=== PATIENT | female | born 1965 | race Caucasian/White ===

== ENCOUNTER 2020-07-05 13:47 | Outpatient (REF) | payer BC, SELFPAY ==
[2020-07-05 16:44] LABS: Alanine Aminotransferase 38 U/L (0-31); Albumin Level 4.2 g/dL (3.5-5.0); Alkaline Phosphatase 95 U/L (39-117); Aspartate Amino Transferase 31 U/L (5-31); Bilirubin Direct 0.2 mg/dL (0.0-0.5); Bilirubin Total 0.5 mg/dL (0.0-1.0); Total Protein 6.8 g/dL (6.5-8.0)
== END 2020-07-05 13:48 | disposition home or self-care (01) ==
LOC: HO.HMGCLDS 13:47
PROVIDERS: PCP Internal Medicine; Visit Provider Podiatrist
DX: B35.1 Tinea unguium (principal)
CPT/HCPCS: 80076

== ENCOUNTER 2020-07-15 10:47 | Outpatient (REF) | payer BC, SELFPAY ==
[2020-07-15 11:06] LABS: COVID-19 Test Negative (Negative)
== END 2020-07-15 10:48 | disposition home or self-care (01) ==
LOC: HO.LAB 10:47
PROVIDERS: Visit Provider Internal Medicine
DX: Z20.828 Contact with and (suspected) exposure to other viral communicable diseases (principal)
CPT/HCPCS: 87635; C9803

== ENCOUNTER → 2020-08-15 13:00 | Outpatient (BNVA) | payer BC, SELFPAY | PROVIDERS: PCP Internal Medicine; Visit Provider Surgery | DX: Z76.89 Persons encountering health services in other specified circumstances (principal) ==

== ENCOUNTER → 2020-09-17 15:15 | Outpatient (BNVA) | payer BC, SELFPAY | PROVIDERS: Visit Provider Obstetrics & Gynecology | DX: Z76.89 Persons encountering health services in other specified circumstances (principal) ==

== ENCOUNTER 2020-09-23 09:53 | Day surgery (SDC) | payer BC, SELFPAY ==
[2020-09-16 14:30] VITALS: BMI 29.9
--- NOTE | 2020-09-20 08:34 | HO.ANESPROP2 ---
Documented by User: Sejal Torresney 09/20/20 08:35 HPI - Anesthesia Eval Consult details Narrative: 55yo F [facility] Past Medical History Medical History Arthritis Asthma Cold-induced asthma Hypertension On beta ayush at home PVCs (premature ventricular contractions) Scoliosis Seasonal allergies Tubular adenoma of colon Family History Family History Father CAD (coronary artery disease) Mother No problems noted. Maternal Grandmother Breast cancer Paternal Grandfather Colon cancer Surgical History Surgical History H/O colonoscopy H/O LEEP History of ankle surgery History of cholecystectomy History of toe surgery History of tonsillectomy S/P laparoscopic sleeve gastrectomy Social History Social History Are you a primary healthcare sales representative to a significant other at home: No Do you presently have visiting nurse or other home services: No Alcohol intake: current Alcohol intake frequency: holidays/special occasions only Smoking Status: Never smoker Tobacco Type: Cigarette Use of substances other than those prescribed or required for medical reasons: No Have you been hit, kicked, punched, or otherwise hurt by someone within the past year? If so, by whom?: No Advance Directives: No Advance Directives Information Provided: No Advance Directives on File: No Recently lost weight without trying: No Sexual orientation: Straight/Heterosexual Gender identity: female Meds Allergies Allergy/AdvReac Type Severity Reaction Status Date / Time iopromide [From Ultravist] Allergy Mild HIVES, Verified 09/17/20 15:[address] Scan dye Allergy Unknown face Uncoded 09/17/20 15:17 swelling IVP dye Allergy Unknown facial Uncoded 09/17/20 15:17 swelling, petechiea Home Medications Medication Instructions Recorded Confirmed Type albuterol sulfate 90 mcg/actuation 1 puff INHALATION Q4-6H PRN 08/07/20 09/16/20 History aerosol inhaler cholecalciferol (vitamin D3) 50 50 mcg PO DAILY 08/07/20 09/16/20 History mcg (2,000 unit) capsule metoprolol tartrate 25 mg tablet 25 mg PO BID 08/07/20 09/16/20 History nystatin 100,000 unit/gram topical 1 appl TOPICAL BID 08/07/20 09/16/20 History cream triamcinolone acetonide 0.1 % 1 appl TOPICAL BID 08/07/20 09/16/20 History topical cream ascorbic acid (vitamin C) 1,000 mg 1 g PO DAILY tab 08/15/20 09/16/20 History tablet ciclopirox 0.77 % topical cream 1 appl TOPICAL BID 08/15/20 08/15/20 History multivitamin 1 tab PO BID tab 08/15/20 09/16/20 History terbinafine HCl 250 mg tablet 250 mg PO DAILY 08/15/20 09/16/20 History thiamine HCl (vitamin B1) 100 mg 100 mg PO DAILY 09/17/20 History tablet Exam Exam Date and Time: September 20, 2020 0834 Height,Weight and Vital Signs: Height 5 ft 3.5 in Weight 78.018 kg Assessment and Plan Assessment Anesthesia Assessment: Chart Reviewed Documented by User: Carlos Manuel Childs MD 09/23/20 10:06 [facility] Past Medical History Medical History Arthritis Asthma Cold-induced asthma Hypertension On beta ayush at home PVCs (premature ventricular contractions) Scoliosis Seasonal allergies Tubular adenoma of colon Family History Family History Father CAD (coronary artery disease) Mother No problems noted. Maternal Grandmother Breast cancer Paternal Grandfather Colon cancer Surgical History Surgical History H/O colonoscopy H/O LEEP History of ankle surgery History of cholecystectomy History of toe surgery History of tonsillectomy S/P laparoscopic sleeve gastrectomy Social History Social History Are you a primary healthcare sales representative to a significant other at home: No Do you presently have visiting nurse or other home services: No Alcohol intake: current Alcohol intake frequency: holidays/special occasions only Smoking Status: Never smoker Tobacco Type: Cigarette Use of substances other than those prescribed or required for medical reasons: No Have you been hit, kicked, punched, or otherwise hurt by someone within the past year? If so, by whom?: No Advance Directives: No Advance Directives Information Provided: No Advance Directives on File: No Recently lost weight without trying: No Sexual orientation: Straight/Heterosexual Gender identity: female Meds Allergies Allergy/AdvReac Type Severity Reaction Status Date / Time iopromide [From Ultravist] Allergy Mild HIVES, Verified 09/17/20 15:[address] Scan dye Allergy Unknown face Uncoded 09/17/20 15:17 swelling IVP dye Allergy Unknown facial Uncoded 09/17/20 15:17 swelling, petechiea Home Medications Medication Instructions Recorded Confirmed Type albuterol sulfate 90 mcg/actuation 1 puff INHALATION Q4-6H PRN 08/07/20 09/16/20 History aerosol inhaler cholecalciferol (vitamin D3) 50 50 mcg PO DAILY 08/07/20 09/16/20 History mcg (2,000 unit) capsule metoprolol tartrate 25 mg tablet 25 mg PO BID 08/07/20 09/16/20 History nystatin 100,000 unit/gram topical 1 appl TOPICAL BID 08/07/20 09/16/20 History cream triamcinolone acetonide 0.1 % 1 appl TOPICAL BID 08/07/20 09/16/20 History topical cream ascorbic acid (vitamin C) 1,000 mg 1 g PO DAILY tab 08/15/20 09/16/20 History tablet ciclopirox 0.77 % topical cream 1 appl TOPICAL BID 08/15/20 08/15/20 History multivitamin 1 tab PO BID tab 08/15/20 09/16/20 History terbinafine HCl 250 mg tablet 250 mg PO DAILY 08/15/20 09/16/20 History thiamine HCl (vitamin B1) 100 mg 100 mg PO DAILY 09/17/20 History tablet Exam Airway Mallampati Class: II TM Dist: >3cm Heart: RRR Lungs: NL Other: AO Assessment and Plan Assessment Anesthesia Assessment: Anesthesia Plan Discussed Final Anesthetic Review NPO: Yes ASA Class: II Final Preanesthetic Review: No Changes in Pt Med Stat, Meds/Allgs Chart Reviewed, Consent Obtained/Reviewed and Anes Risks/Benef Reviewed Patient Risk: Intermediate Procedure Risk: Low Anesthetic Plan Anesthetic Plan: MAC: Disposition: Standard PACU
[2020-09-23 10:18] VITALS: BP 114/72; PULSE 57; RESP 18; TEMP 36.5; O2SAT 98
[2020-09-23] MEDS: Lactated Ringers 1,000 ML 100 ML IVCONT (10:33)
--- NOTE | 2020-09-23 10:59 | MHC.SHP ---
Pre-Procedural Eval Section B Chief Complaint: Tubular adenoma of colon Details of Present Illness: colon cancer screening, no GI complaints. Relevant Family History (Specify if Yes): No Relevant Social History: None Present Medications: see Short Stay Collaborative assessment Medical History: No relevant PMH History of Previous Operations: No relevant previous surgery Allergies: Allergies Allergy/AdvReac Type Severity Reaction Status Date / Time iopromide [From Ultravist] Allergy Mild HIVES, Verified 09/17/20 15:[address] Scan dye Allergy Unknown face Uncoded 09/17/20 15:17 swelling IVP dye Allergy Unknown facial Uncoded 09/17/20 15:17 swelling, petechiea Review of Systems Sugical H&P ROS: Negative: Constitution, Cardiovascular, Respiratory, Neurological, Psychiatric, Hem-Onc, Allergic/Immunologic, Gastrointestinal, Genitourinary, Musculoskeletal, Integumentary, Endocrine and Eyes/Ears/Nose/Throat Exam Surgical H&P Exam: Normal: HEENT, Normal: Heart, Normal: Lungs, Normal: Extremities, Normal: Abdomen, Normal: Skin and Normal: Neurological Plan Diagnosis/Plan: Unchanged I have reviewed the history and physical and performed a pertinent physical examination on my patient. No changes have occurred unless specified.
[2020-09-23 11:48] VITALS: BP 107/69; PULSE 66; RESP 16; TEMP 36.5; O2SAT 97
--- NOTE | 2020-09-23 11:48 | W.PM.OPN ---
Operative Note Operative Note Date of Service: 09/23/20 Narrative: Preoperative diagnosis: History of tubular adenomas of: Postoperative diagnosis: Colon polyp Procedure: Colonoscopy with polypectomy Anesthesia: Monitored anesthesia care Estimated blood loss: Less than 1 cc Specimen: Polyp proximal right colon Indications: This is a 55-year-old female with a prior history of tubular adenomas of the colon who has no GI complaints and presents for routine colonoscopy. Procedure in detail: With the patient in left lateral decubitus position after obtaining adequate sedation, time-out procedure was performed. Rectal examination revealed no abnormalities. The flexible pediatric colonoscope was introduced and was gradually advanced through the bowel to the level of the cecum. The prep was good with some thick liquid material remaining throughout the colon. This could be irrigated and suctioned away. The cecal pouch, ileocecal valve and appendiceal orifice were inspected and appeared normal. The ileocecal valve was not intubated. The scope was slowly withdrawn, visualizing all mucosal surfaces, was retroflexed within the rectum and was then straightened and withdrawn. She tolerated the procedure well. In the proximal right colon, there was 1 small polyp that was completely removed with the biopsy forceps. There was no significant bleeding. Based upon findings and prior history, next routine colonoscopy will be due in 5 years.
[2020-09-23 12:03] VITALS: BP 110/65; PULSE 59; RESP 18; O2SAT 97
--- NOTE | 2020-09-23 12:30 | HO.POSTANES ---
Post Anesthesia Evaluation Post Anesthesia Evaluation Vital Signs: Vital Signs Temp Pulse Resp BP Pulse Ox 09/23/20 12:03 97.7 F 59 18 110/65 97 09/23/20 11:48 97.7 F 66 16 107/69 97 09/23/20 10:18 97.7 F 57 18 114/72 98 Anesthesia: Monitored Mental Status: Awake Pain Control: Satisfactory Nausea/Vomiting: None Hydration: Adequate Anesthesia-Related Issues: No Anes. Related Issues
== END 2020-09-23 12:31 ==
LOC: HO.SSS 09:54
PROVIDERS: PCP Internal Medicine; Visit Provider Surgery
PROC: 0DJD8ZZ Inspection of Lower Intestinal Tract, Via Natural or Artificial Opening Endoscopic (ICD-10-PCS; CPT 45378; principal; 2020-09-23 11:00)
DX: Z12.11 Encounter for screening for malignant neoplasm of colon (principal); Z86.010 Personal history of colon polyps; D12.2 Benign neoplasm of ascending colon; I10 Essential (primary) hypertension; J45.909 Unspecified asthma, uncomplicated; Z98.84 Bariatric surgery status; Z91.041 Radiographic dye allergy status; I49.3 Ventricular premature depolarization; Z79.899 Other long term (current) drug therapy
CPT/HCPCS: 45380; 88305; J2250; J2405

== ENCOUNTER 2020-10-29 06:48 | Outpatient (REF) | payer BC, SELFPAY ==
[2020-10-29 07:53] LABS: Alanine Aminotransferase 68 U/L (0-31); Albumin Level 4.3 g/dL (3.5-5.0); Alkaline Phosphatase 103 U/L (39-117); Aspartate Amino Transferase 33 U/L (5-31); Bilirubin Direct 0.2 mg/dL (0.0-0.5); Bilirubin Total 0.4 mg/dL (0.0-1.0); Total Protein 7.2 g/dL (6.5-8.0)
== END 2020-10-29 06:49 | disposition home or self-care (01) ==
LOC: HO.LAB 06:48
PROVIDERS: PCP Internal Medicine; Visit Provider Podiatrist
DX: B35.1 Tinea unguium (principal)
CPT/HCPCS: 36415; 80076

== ENCOUNTER 2020-12-17 07:40 | Outpatient (REF) | payer BC, SELFPAY ==
--- NOTE | ~2020-12-17 | MM_ITS ---
EXAMINATION: MM DIAGNOSTIC DIGITAL BREAST TOMOSYNTHESIS, BILATERAL CLINICAL INFORMATION: Due for yearly. Also follow-up probable benign fibroglandular density anterior medial left breast. The lifetime risk of breast cancer based on the Tyrer-Cuzick Model is 9%. COMPARISON: Mammography: 05/29/2020, 10/23/2019, 10/17/2019 (BI-RADS 0), and multiple prior studies dating back to 08/09/2009. Targeted ultrasound left breast 10/23/2019. TECHNIQUE: Digital breast tomosynthesis is performed in both the craniocaudal and mediolateral oblique views along with computer-aided detection (CAD). Synthesized 2D images are generated from the tomosynthesis. FINDINGS: There are scattered areas of fibroglandular density (ACR BI-RADS breast composition Category b). Parenchymal pattern is similar to prior exams. There are bilateral shifting fibroglandular densities from year to year based on positioning and compression. There is no developing density or interval mass or architectural abnormality. No abnormal calcifications. The axilla and skin contours are unremarkable. Results are provided to the patient at time of visit by the technologist. Management plan is for diagnostic exam-next bilateral annual mammography to conclude long-term surveillance. MM/MM tomosynthesis diagnostic BI IMPRESSION: 1. No mammographic evidence of malignancy. 2. Anterior medial left breast similar to prior diagnostic exams. ASSESSMENT: BI-RADS 3: Probably Benign RECOMMENDATION: Diagnostic mammography at time of next annual exam, due in 12 months. This patient's information was entered into a reminder system with a target due date for their next mammogram.
== END 2020-12-17 07:41 | disposition home or self-care (01) ==
LOC: HO.MAMMO 07:40
PROVIDERS: PCP Internal Medicine; Visit Provider Internal Medicine
DX: R92.2 Inconclusive mammogram (principal)
CPT/HCPCS: 77062; 77066

== ENCOUNTER 2021-12-26 13:16 | Outpatient (REF) | payer BC, SELFPAY ==
--- NOTE | ~2021-12-26 | MM_ITS ---
EXAMINATION: MM DIAGNOSTIC DIGITAL BREAST TOMOSYNTHESIS, BILATERAL CLINICAL INFORMATION: Screening right breast study with 6 month follow-up left breast study The lifetime risk of breast cancer based on the Tyrer-Cuzick Model is 6.1%. COMPARISON: Mammography: December 17, 2020 and studies dating back to March 15, 2012 TECHNIQUE: Digital breast tomosynthesis is performed in both the craniocaudal and mediolateral oblique views along with computer-aided detection (CAD). Synthesized 2D images are generated from the tomosynthesis. FINDINGS: There are scattered areas of fibroglandular density (ACR BI-RADS breast composition Category b). There are no significant masses, abnormal calcifications, or other abnormalities. There is stable appearance of medial anterior densities with no new suspicious dominant mass or clustered microcalcifications. Results are provided to the patient at time of visit by the technologist. MM/MM tomosynthesis diagnostic BI IMPRESSION: There are no significant changes from prior study. ASSESSMENT: BI-RADS 2: Benign RECOMMENDATION: Routine annual mammography screening due in 12 months. This patient's information was entered into a reminder system with a target due date for their next mammogram.
== END 2021-12-26 13:17 | disposition home or self-care (01) ==
LOC: HO.MAMMO 13:16
PROVIDERS: PCP Internal Medicine; Visit Provider Internal Medicine
DX: R92.2 Inconclusive mammogram (principal)
CPT/HCPCS: 77062; 77066

== ENCOUNTER 2022-01-21 14:41 | Outpatient (REF) | payer BC, SELFPAY ==
[2022-01-28 01:12] LABS: HPV 16 RNA NOT DETECTED (NOT DETECTED); HPV mRNA E6/E7 rflx Detected (Not Detected)
== END 2022-01-21 14:42 | disposition home or self-care (01) ==
LOC: HO.LAB 14:41
PROVIDERS: Visit Provider Advanced Practice Midwife
DX: Z01.419 Encounter for gynecological examination (general) (routine) without abnormal findings (principal); Z11.51 Encounter for screening for human papillomavirus (HPV)
CPT/HCPCS: 87624; 87625; 88142

== ENCOUNTER → 2022-12-01 14:59 | Outpatient (BNVA) | payer BC, SELFPAY | PROVIDERS: PCP Internal Medicine; Visit Provider Hospitalist | DX: Z13.89 Encounter for screening for other disorder (principal) ==

== ENCOUNTER 2022-12-28 13:32 | Outpatient (REF) | payer BC, SELFPAY ==
--- NOTE | ~2022-12-28 | MM_ITS ---
EXAMINATION: MM SCREENING DIGITAL BREAST TOMOSYNTHESIS, BILATERAL CLINICAL INFORMATION: Screening. Asymptomatic. The lifetime risk of breast cancer based on the Tyrer-Cuzick Model is 6.1%. COMPARISON: Mammography: December 26, 2021 and studies dating back to June 20, 2015 TECHNIQUE: Digital breast tomosynthesis is performed in both the craniocaudal and mediolateral oblique views along with computer-aided detection (CAD). Synthesized 2D images are generated from the tomosynthesis. FINDINGS: There are scattered areas of fibroglandular density (ACR BI-RADS breast composition Category b). There are no significant masses, abnormal calcifications, or other abnormalities. MM/MM tomosynthesis screening BI IMPRESSION: No significant changes from prior exam. ASSESSMENT: BI-RADS 1: Negative RECOMMENDATION: Routine annual mammography screening. This patient's information was entered into a reminder system with a target due date for their next mammogram.
== END 2022-12-28 13:33 | disposition home or self-care (01) ==
LOC: HO.MAMMO 13:32
PROVIDERS: PCP Internal Medicine; Visit Provider Internal Medicine
DX: Z12.31 Encounter for screening mammogram for malignant neoplasm of breast (principal)
CPT/HCPCS: 77063; 77067

== ENCOUNTER 2023-04-12 08:59 | Outpatient (AMB) | payer BC, SELFPAY ==
[2023-04-12 09:06] VITALS: BP 132/68; PULSE 75; O2SAT 98; BMI 34.2
--- NOTE | 2023-04-12 09:06 | MHC.PC.OV ---
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 Accompanied by: Self / Same As Patient Allergies iopromide [From Ultravist] Allergy (Mild, Verified 04/12/23 09:07) HIVES, FACIAL SWELLING CT Scan dye Allergy (Unknown, Uncoded 04/12/23 09:07) face swelling IVP dye Allergy (Unknown, Uncoded 04/12/23 09:07) facial swelling, petechiea Medication List - Last Reconciled 04/12/23 by Uziel Cantu MD albuterol sulfate 90 mcg/actuation 1 puff inhalation Q4-6H PRN albuterol sulfate 2.5 mg (3 mL) inhalation Q6H PRN 30 days ascorbic acid (vitamin C) 1 g PO DAILY cholecalciferol (vitamin D3) 50 mcg PO DAILY ciclopirox 0.77% 1 appl topical BID dicyclomine 20 mg PO QID metoprolol tartrate 25 mg PO BID multivitamin (Multiple Vitamins tablet) 1 tab PO BID nebulizer and compressor (Home Nebulizer Plus Sidestream) As directed nebulizers As directed nystatin 1 appl topical BID omeprazole 20 mg PO BID triamcinolone acetonide 0.1% 1 appl topical BID Tobacco use date assessed: 03/03/23 Dental Screening Dental Screen Date: 04/12/23 Did you have a dental visit in the last 12 months?: Yes Did you have a dental problem in the last 6 months where you did not have access to dental care?: No Was dental information given to patient?: Patient has dentist HPI PE HPI Details asthma and HTN; doing well [facility] Medical History (Updated 03/03/23 @ 09:05 by Uziel Cantu MD) Arthritis Asthma Cold-induced asthma Cough Hypertension Obesity Obesity (BMI 30-39.9) On beta ayush at home PVCs (premature ventricular contractions) Scoliosis Seasonal allergies Tubular adenoma of colon Surgical History H/O colonoscopy H/O LEEP History of ankle surgery History of cholecystectomy History of toe surgery History of tonsillectomy S/P laparoscopic sleeve gastrectomy Family History Father CAD (coronary artery disease) Mother No problems noted. Maternal Grandmother Breast cancer Paternal Grandfather Colon cancer Social History Housing: House Are you a primary healthcare consultant to a significant other at home: No Do you presently have visiting nurse or other home services: No Alcohol intake: current Alcohol intake frequency: holidays/special occasions only Patient Tobacco Use Status: Never used Tobacco e-Cigarette/Vaping Use: Never Used Second Hand Smoke Exposure: No service: No Current occupational status: unemployed Sexual orientation: Straight/Heterosexual Gender identity: Female Cognitive needs: No Hearing needs: No Vision needs: No Questionnaire PHQ-9 Over the last 2 weeks, how often have you been bothered by any of the following problems? 1. Little interest or pleasure in doing things: not at all 2. Feeling down, depressed, or hopeless: not at all 3. Trouble falling or staying asleep, or sleeping too much: not at all 4. Feeling tired or having little energy: not at all 5. Poor appetite or overeating: not at all 6. Feeling bad about yourself - or that you are a failure or have let yourself or your family down: not at all 7. Trouble concentrating on things, such as reading the newspaper or watching television: not at all 8. Moving or speaking so slowly that other people could have noticed. Or the opposite - being so fidgety or restless that you have been moving around a lot more than usual: not at all 9. Thoughts that you would be better off or of hurting yourself in some way: not at all Total score: 0 Depression Screening Interpretation: Negative [id number] - PHQ-9 Billing: Yes Source: Developed by Drs. Adrian Varela, Lea Higgins, Pablo Sharpe and colleagues, with an educational allison from [employer]. Thrive Questionnaire Date Thrive assessed: 09/22/22 AUDIT C Alcohol Use Questionnaire (AUDIT-C) 1. How often do you have a drink containing alcohol?: Monthly or less 2. How many drinks containing alcohol do you have on a typical day when you are drinking?: 1 or 2 3. How often do you have six or more drinks on one occasion?: Never Total Score: 1 NATO-7 AMB Questionnaire NATO-7 Date NATO - 7 assessed: 09/22/22 Source: Developed by Drs. Adrian Varela, Lea Higgins, Pablo Sharpe and colleagues, with an educational allison from [employer]. Review of Systems Const Denies chills, Denies fatigue, Denies headache(s) and Denies weight loss Eyes Denies change in vision, Denies diplopia and Denies eye pain ENT Denies vertigo, Denies dizziness, Denies headache(s) and Denies nasal discharge Card Denies chest pain, Denies rapid heart rate and Denies dyspnea on exertion Resp Denies chest congestion, Denies cough, Denies pain with cough and Denies dyspnea on exertion GI Denies abdominal pain, Denies hematochezia and Denies change in bowel habits Musc Denies myalgias, Denies arthralgias and Denies joint swelling Skin/Breast Denies lesions and Denies unusual bruising Neuro Denies vertigo, Denies dizziness, Denies headache(s) and Denies focal weakness Endo Denies fatigue Physical exam (Primary Care) Vital Signs: Last Vital Signs Pulse 75 04/12/23 09:06 BP 132/68 04/12/23 09:06 Pulse Ox 98 04/12/23 09:06 Oxygen Delivery Method Room Air 04/12/23 09:06 BMI result Body Mass Index 34.2 Tobacco/Smoking Status: Tobacco use Status Tobacco use date assessed 03/03/23 04/12/23 09:08 Patient Tobacco Use Status Never used Tobacco 04/12/23 09:08 e-Cigarette/Vaping Use Never Used 04/12/23 09:08 PHQ-9: PHQ-9 Score PHQ-9: Total score 0 04/12/23 09:08 Depression Screening Interpretation: Negative Thrive Assessment: Date of Thrive Assessment Date Thrive assessed 09/22/22 04/12/23 09:08 Const General: cooperative, healthy appearing and no acute distress Orientation/consciousness: oriented to person, oriented to place and oriented to time HENMT Head: Yes normal to inspection, Yes normocephalic and Yes atraumatic Mouth: Normal oral and palatal mucosa present and tongue normal Throat: Yes posterior oropharynx normal and Yes uvula midline Eyes General: appearance normal, both eyes and all related structures Neck Neck: Yes normal visual inspection, Yes full ROM and Yes no lymphadenopathy Thyroid: Thyroid normal Carotids: normal carotid upstroke Chest Chest palpation & inspection: normal inspection of the chest Resp Effort & Inspection: normal respiratory effort and able to speak in complete sentences Auscultation: clear to auscultation bilaterally Cardio Jugular venous distension: no JVD Palpation: normal PMI Rate: regular rate Rhythm: regular rhythm Heart sounds: S1 normal heart sound present and S2 normal heart sound present GI Inspection: Yes normal to inspection Palpation (GI): Soft to palpation and No hepatosplenomegaly present Auscultation: normal bowel sounds General: Yes no CVA tenderness Back/Spine/Pelvis Back: no CVA tenderness Skin General skin exam: no rashes or lesions noted Neuro General: oriented to person, oriented to place and oriented to time Extrem General: Yes normal to inspection and Yes full ROM Assessment and Plan Assessment & Plan (1) Physical exam: Code(s): Z00.00 - Encounter for general adult medical examination without abnormal findings Plan: stable (2) Hypertension: Code(s): I10 - Essential (primary) hypertension Plan: stable; same rx (3) Asthma: Code(s): J45.909 - Unspecified asthma, uncomplicated Plan: stable; same rx Coding Level of Care Code Est Pt Prev Care 40-64y(72824) Diagnoses Physical exam Z00.00 Hypertension I10 Asthma J45.909
== END 2023-04-12 09:35 | disposition home or self-care (01) ==
PROVIDERS: PCP Internal Medicine; Visit Provider Internal Medicine
DX: Z00.00 Encounter for general adult medical examination without abnormal findings (principal); I10 Essential (primary) hypertension; J45.909 Unspecified asthma, uncomplicated
CPT/HCPCS: 99396

== ENCOUNTER 2023-09-27 14:26 | Outpatient (AMB) | payer BC, SELFPAY ==
--- NOTE | 2023-09-27 14:35 | MHC.OFFVIS ---
Intake Vital Signs 09/27/23 14:36 Height 5 ft 4 in Weight 200 lb BMI 34.3 Pulse 71 Pulse Source Pulse Oximeter Pulse Oximetry (%) 96 Oxygen Delivery Method Room Air Intake Visit Reasons: Shortness of breath Allergies iopromide [From Ultravist] Allergy (Mild, Verified 09/27/23 14:37) HIVES, FACIAL SWELLING CT Scan dye Allergy (Unknown, Uncoded 09/27/23 14:37) face swelling IVP dye Allergy (Unknown, Uncoded 09/27/23 14:37) facial swelling, petechiea HPI HPI Comments History of Present Illness Details The patient is a 58 year woman with known history of asthma. Apparently she was in usual state health until back in September 2022 after new year she started developing worsening cough. The cough became nonproductive in very significant. She was having chest tightness and also appreciated wheezing. She went to see a primary care doctor. She was given a rescue inhaler and also prednisone and antibiotics. Initially she felt a little better but then her symptoms persisted. She will need to use her inhaler every day to 0 4 hours. She did not want to go to the ER if she could avoid. Ultimately again she went back to her primary care doctor this time she requested a nebulizer. She did get a nebulizer another course of prednisone antibiotics. On her exam was consistent with wheezing per report. The patient ultimately has been improving. She had requested a pulmonary consultation but she could not get 1 early enough. Therefore she is coming now. Her wheezing is significantly better and her cough as well. She is closer back to baseline. On examination she still has some force excellent Ohri wheezing upon exhalation. Although minimal. At this point the respiratory symptoms are not limiting her exercise capacity ability to do her activities of daily living. Therefore will continue with current respiratory regimen. Will plan to repeat her PFTs and a chest x-ray prior to the next visit in about 3 months. If the patient has any symptoms or any concerns prior to that she can call for an appointment. If the patient does need to be on a maintenance inhaler Symbicort may be a good option to provide with initial maintenance therapy and then she can be tapered down to as needed. 09/27/2023 the patient is here for a pulmonary follow-up visit. The patient has not been doing well. Apparently back around August time she started developing worsening cough chest congestion sore throat. The patient did try bflv-myf-[id number] medications with only minimal resolution. She was then given a script for benzo needs which would be helpful just for about an hour and then the symptoms will come back. After that she was given a Z-Jonny which she just finished. She felt that the CPAP helps some. The mucus coming up is usually clear although tenacious and sticky. A my examination the patient does have significant sinus congestion and also cobblestoning with some vesicles on the uvula. This suggest more of a potential upper respiratory illness. In addition to that her respiratory exam is pretty benign. Therefore, will go ahead and treat her for sinusitis at this time. If the patient is no better then will request a chest x-ray. She states that this is not uncommon for her to be sick during the winter months. Will request additional imaging studies and/or laboratories during the next visit. [facility] Medical History (Updated 09/27/23 @ 19:52 by Son Mosley MD) Sinusitis Cough Obesity (BMI 30-39.9) Obesity Asthma Seasonal allergies Arthritis Scoliosis On beta ayush at home Cold-induced asthma PVCs (premature ventricular contractions) Hypertension Tubular adenoma of colon Surgical History S/P laparoscopic sleeve gastrectomy H/O colonoscopy History of toe surgery History of cholecystectomy H/O LEEP History of ankle surgery History of tonsillectomy Family History Father CAD (coronary artery disease) Mother No problems noted. Maternal Grandmother Breast cancer Paternal Grandfather Colon cancer Social History Housing: House Are you a primary health care attorney to a significant other at home: No Do you presently have visiting nurse or other home services: No Alcohol intake: current Alcohol intake frequency: holidays/special occasions only Patient Tobacco Use Status: Never used Tobacco e-Cigarette/Vaping Use: Never Used Second Hand Smoke Exposure: No service: No Current occupational status: unemployed Sexual orientation: Straight/Heterosexual Gender identity: Female Cognitive needs: No Hearing needs: No Vision needs: No Review of Systems Const Denies chills and Denies weight loss ENT Reports nasal congestion, Reports nasal discharge, Reports nasal obstruction and Reports post nasal drip Card Denies chest pain, Denies syncope, Denies irregular heart rhythm and Denies dyspnea Resp Reports change in phlegm color, Reports chest congestion, Reports cough, Denies dyspnea and Reports wheezing GI Denies change in stool character, Denies nausea and Denies vomiting Musc Denies deformity and Denies joint swelling Neuro Denies syncope Emmett/Lymph Denies easy bruising and Denies lymphadenopathy Aller/Immun Reports wheezing Physical Exam Vital Signs: Last Vital Signs Pulse 71 09/27/23 14:36 Pulse Ox 96 09/27/23 14:36 Oxygen Delivery Method Room Air 09/27/23 14:36 BMI result Body Mass Index 34.3 Const General: comfortable, no acute distress and alert HEENT General nose exam: Abnormal mucous membranes and turbinates present erythematous Throat: Yes uvular edema (with small vesicles) Neck Neck: Yes no lymphadenopathy Thyroid: Thyroid normal Chest Chest palpation & inspection: normal inspection of the chest Resp Effort & Inspection: normal respiratory effort Auscultation: clear to auscultation bilaterally and no wheezes Cardio Jugular venous distension: no JVD Palpation: normal PMI Rate: regular rate Rhythm: regular rhythm Heart sounds: S1 normal heart sound present and S2 normal heart sound present GI Inspection: Yes normal to inspection Palpation (GI): No hepatosplenomegaly present Skin General skin exam: no rashes or lesions noted Extrem General: Yes no clubbing, cyanosis or edema Assessment & Plan Assessment & Plan (1) Asthma: Code(s): J45.909 - Unspecified asthma, uncomplicated Qualifiers: Asthma severity: moderate Asthma persistence: persistent Asthma complication type: uncomplicated Qualified Code(s): J45.40 - Moderate persistent asthma, uncomplicated (2) Cough: Code(s): R05.9 - Cough, unspecified Qualifiers: Cough type: subacute Qualified Code(s): R05.2 - Subacute cough (3) Sinusitis: Code(s): J32.9 - Chronic sinusitis, unspecified Qualifiers: Sinusitis location: unspecified location Chronicity: subacute Qualified Code(s): J01.90 - Acute sinusitis, unspecified Plan Afrin x 3-5 days Start low dose prednisone start Augmentin Benzonates for cough as needed IVORY as needed start Symbicort BID CXR if no better F/U 3 months or sooner if any new issues arise Orders: Orders XR chest 2V Today R05.9 - Cough, unspecified Medications: New budesonide-formoterol 160-4.5 mcg/actuation (Symbicort) 2 puffs inhalation BID 30 days 10.2 grams 11RF J44.89 - Other specified chronic obstructive pulmonary disease amoxicillin-pot clavulanate 875-125 mg 1 tab PO BID 10 days 20 tabs 0RF prednisone PO daily; Take 2 tabs daily x 7 days, then 1 tab daily x 7 days 14 days 21 tabs 0RF fluconazole 100 mg PO DAILY 7 days 7 tabs 0RF benzonatate 200 mg PO BID 30 days PRN 60 caps 0RF cough Coding Level of Care Code Est Pt Level 4 (40386) Diagnoses Moderate persistent asthma without complication J45.40 Asthma severity: moderate Asthma persistence: persistent Asthma complication type: uncomplicated Subacute cough R05.2 Cough type: subacute Subacute sinusitis, unspecified location J01.90 Sinusitis location: unspecified location Chronicity: subacute Time Spent (min) 16
[2023-09-27 14:36] VITALS: PULSE 71; O2SAT 96; BMI 34.3
== END 2023-09-27 14:56 | disposition home or self-care (01) ==
PROVIDERS: PCP Internal Medicine; Visit Provider Hospitalist
DX: J45.40 Moderate persistent asthma, uncomplicated (principal); R05.2 Subacute cough; J01.90 Acute sinusitis, unspecified
CPT/HCPCS: 99214

== ENCOUNTER → 2023-09-27 14:26 | Outpatient (BNVA) | payer BC, SELFPAY | PROVIDERS: PCP Internal Medicine; Visit Provider Hospitalist ==

== ENCOUNTER 2023-12-27 10:47 | Outpatient (AMB) | payer BC, SELFPAY ==
[2023-12-27 10:48] VITALS: BP 130/78; PULSE 58; O2SAT 99; BMI 34.7
--- NOTE | 2023-12-27 10:48 | A.OFFPC_ITS ---
Vital Signs 12/27/23 10:48 Height 5 ft 4 in Weight 202 lb BMI 34.7 BP 130/78 Blood Pressure Location Lt brachial Position Sitting Pulse 58 Pulse Source Pulse Oximeter Pulse Oximetry (%) 99 Oxygen Delivery Method Room Air Intake Visit Reasons: Ramsey Sykes 12/20 rectal bleeding Radio Adjuster Required: No Steam Pan Sponger: Not Required per policy Accompanied by: Self / Same As Patient Allergies iopromide [From Ultravist] Allergy (Mild, Verified 12/27/23 10:48) HIVES, FACIAL SWELLING CT Scan dye Allergy (Unknown, Uncoded 12/27/23 10:48) face swelling IVP dye Allergy (Unknown, Uncoded 12/27/23 10:48) facial swelling, petechiea Medication List - Last Reconciled 12/27/23 by Uziel Cantu MD albuterol sulfate 90 mcg/actuation 1 puff inhalation Q4-6H PRN albuterol sulfate 2.5 mg (3 mL) inhalation Q6H PRN 30 days amoxicillin-pot clavulanate 875-125 mg 1 tab PO BID 10 days ascorbic acid (vitamin C) 1 g PO DAILY benzonatate 100 mg PO TID PRN benzonatate 200 mg PO BID PRN 30 days budesonide 0.5 mg (2 mL) inhalation BID 30 days budesonide-formoterol 160-4.5 mcg/actuation (Symbicort) 2 puffs inhalation BID 30 days cholecalciferol (vitamin D3) 50 mcg PO DAILY ciclopirox 0.77% 1 appl topical BID codeine-guaifenesin 10-100 mg/5 mL 10 mL PO Q6H PRN 10 days dicyclomine 20 mg PO QID doxycycline monohydrate 100 mg PO BID 14 days fluconazole 100 mg PO DAILY 7 days metoprolol tartrate 25 mg PO BID mometasone-formoterol 200-5 mcg/actuation (Dulera) 2 puffs inhalation Q12H 30 days multivitamin (Multiple Vitamins tablet) 1 tab PO BID nebulizer and compressor (Home Nebulizer Plus Sidestream) As directed nebulizers As directed nystatin 1 appl topical BID omeprazole 20 mg PO BID prednisone PO daily; Take 2 tabs daily x 7 days, then 1 tab daily x 7 days 14 days prednisone PO daily; Take 2 tabs twice a day x 5 days, then 1 tab twice a day x 5 days, then 1 tab daily x 5 days and stop 15 days triamcinolone acetonide 0.1% 1 appl topical BID Tobacco use date assessed: 12/27/23 Dental Screening Dental Screen Date: 12/27/23 Did you have a dental visit in the last 12 months?: Yes Did you have a dental problem in the last 6 months where you did not have access to dental care?: No Was dental information given to patient?: Patient has dentist HPI Ramsey Sykes 12/20 rectal bleeding HPI Details has some rectal bleeding and called for a gi referral several months ago; referral was placed but patient not contacted [facility] Medical History (Updated 12/27/23 @ 11:03 by Uziel Cantu MD) Sinusitis Cough Obesity (BMI 30-39.9) Obesity Asthma Seasonal allergies Arthritis Scoliosis On beta ayush at home Cold-induced asthma PVCs (premature ventricular contractions) Hypertension Tubular adenoma of colon Surgical History S/P laparoscopic sleeve gastrectomy H/O colonoscopy History of toe surgery History of cholecystectomy H/O LEEP History of ankle surgery History of tonsillectomy Family History Father CAD (coronary artery disease) Mother No problems noted. Maternal Grandmother Breast cancer Paternal Grandfather Colon cancer Social History Housing: House Are you a primary healthcare receptionist to a significant other at home: No Do you presently have visiting nurse or other home services: No Alcohol intake: current Alcohol intake frequency: holidays/special occasions only Patient Tobacco Use Status: Never used Tobacco e-Cigarette/Vaping Use: Never Used Second Hand Smoke Exposure: No service: No Current occupational status: unemployed Sexual orientation: Straight/Heterosexual Gender identity: Female Cognitive needs: No Hearing needs: No Vision needs: No Questionnaire PHQ-9 Over the last 2 weeks, how often have you been bothered by any of the following problems? 1. Little interest or pleasure in doing things: not at all 2. Feeling down, depressed, or hopeless: not at all 3. Trouble falling or staying asleep, or sleeping too much: not at all 4. Feeling tired or having little energy: not at all 5. Poor appetite or overeating: not at all 6. Feeling bad about yourself - or that you are a failure or have let yourself or your family down: not at all 7. Trouble concentrating on things, such as reading the newspaper or watching television: not at all 8. Moving or speaking so slowly that other people could have noticed. Or the opposite - being so fidgety or restless that you have been moving around a lot more than usual: not at all 9. Thoughts that you would be better off or of hurting yourself in some way: not at all Total score: 0 Depression Screening Interpretation: Negative Depression Screening Done: Yes 62278 - PHQ-9 Billing: Yes Source: Developed by Drs. Adrian Varela, Lea Higgins, Pablo Sharpe and colleagues, with an educational allison from [employer]. Thrive Questionnaire Date Thrive assessed: 12/27/23 I am a: Patient What is your living situation today?: I have a steady place to live Within the past 12 months, did the food you bought not last and you didn't have the money to get more?: Never true Within the past 12 months, did you worry whether your food would run out before you got money to buy more?: Never true Do you have trouble paying for medicines?: No Do you have trouble getting transportation to medical appointments?: No Do you have trouble paying your heating and electricity bill?: No Do you have trouble taking care of your child, family member or friend?: No Do you have trouble with day-to-day activities such as bathing, preparing meals, shopping, managing finances, etc.?: No Are you currently unemployed and looking for a job?: No Are you interested in more education?: No Please select the resources that you would like help with: None THRIVE Score: 0 AUDIT C Alcohol Use Questionnaire (AUDIT-C) 1. How often do you have a drink containing alcohol?: Monthly or less 2. How many drinks containing alcohol do you have on a typical day when you are drinking?: 1 or 2 3. How often do you have six or more drinks on one occasion?: Never Total Score: 1 NATO-7 AMB Questionnaire NATO-7 Date NATO - 7 assessed: 12/27/23 Feeling nervous, anxious, or on edge: 0 = Not at all Not being able to stop or control worryin = Not at all Worrying too much about different things: 0 = Not at all Trouble relaxin = Not at all Being so restless that it is hard to sit still: 0 = Not at all Becoming easily annoyed or irritable: 0 = Not at all Feeling afraid as if something awful might happen: 0 = Not at all Total NATO-7 score (0-4 normal; 5-9 mild; 10-14 moderate; 15-21 severe): 0 Source: Developed by Drs. Adrian Varela, Lea Higgins, Pablo Sharpe and colleagues, with an educational allison from [employer]. Review of Systems Const Denies chills, Denies headache(s) and Denies weight loss ENT Denies headache(s) Card Denies chest pain, Denies syncope, Denies irregular heart rhythm and Denies dyspnea Resp Denies chest congestion, Denies cough and Denies dyspnea GI Denies abdominal pain, Denies change in stool character, Denies nausea and Denies vomiting Musc Denies deformity and Denies joint swelling Neuro Denies syncope and Denies headache(s) Physical exam (Primary Care) Vital Signs: Last Vital Signs Pulse 58 12/27/23 10:48 BP 130/78 12/27/23 10:48 Pulse Ox 99 12/27/23 10:48 Oxygen Delivery Method Room Air 12/27/23 10:48 BMI result Body Mass Index 34.7 Tobacco/Smoking Status: Tobacco use Status Tobacco use date assessed 12/27/23 12/27/23 10:49 Patient Tobacco Use Status Never used Tobacco 12/27/23 10:49 e-Cigarette/Vaping Use Never Used 12/27/23 10:49 PHQ-9: PHQ-9 Score PHQ-9: Total score 0 12/27/23 10:49 Depression Screening Interpretation: Negative Thrive Assessment: Date of Thrive Assessment Date Thrive assessed 12/27/23 12/27/23 10:49 Const General: cooperative, comfortable, no acute distress and alert Neck Neck: Yes no lymphadenopathy Thyroid: Thyroid normal Resp Effort & Inspection: normal respiratory effort Auscultation: clear to auscultation bilaterally Percussion: percussion normal Cardio Jugular venous distension: no JVD Palpation: normal PMI Rate: regular rate Rhythm: regular rhythm Heart sounds: S1 normal heart sound present and S2 normal heart sound present GI Inspection: Yes normal to inspection Palpation (GI): No hepatosplenomegaly present Skin General skin exam: no rashes or lesions noted Extrem General: Yes no clubbing, cyanosis or edema Assessment and Plan Assessment & Plan (1) Rectal bleeding: Code(s): K62.5 - Hemorrhage of anus and rectum Plan: referrall updated Coding Level of Care Code Est Pt Level 3 (22303) Diagnoses Rectal bleeding K62.5
== END 2023-12-27 11:08 | disposition home or self-care (01) ==
LOC: HO.HMGH 10:47
PROVIDERS: PCP Internal Medicine; Visit Provider Internal Medicine
DX: K62.5 Hemorrhage of anus and rectum (principal)
CPT/HCPCS: 99213

== ENCOUNTER 2024-01-03 13:07 | Outpatient (REF) | payer BC, SELFPAY | END 2024-01-03 13:08 | disposition home or self-care (01) | LOC: HO.MAMMO 13:07 | PROVIDERS: PCP Internal Medicine; Visit Provider Internal Medicine | DX: Z12.31 Encounter for screening mammogram for malignant neoplasm of breast (principal) | CPT/HCPCS: 77063; 77067 ==

== ENCOUNTER → 2024-01-03 13:15 | Outpatient (BNV) | payer BC, SELFPAY | PROVIDERS: PCP Internal Medicine; Visit Provider Radiology Diagnostic Radiology | DX: Z12.31 Encounter for screening mammogram for malignant neoplasm of breast (principal) | CPT/HCPCS: 77063; 77067 ==

== ENCOUNTER 2024-04-14 08:56 | Outpatient (AMB) | payer BC, SELFPAY ==
[2024-04-14 08:59] VITALS: BP 128/80; PULSE 57; O2SAT 98; BMI 32.1
--- NOTE | 2024-04-14 08:59 | MHC.PC.OV ---
Vital Signs 04/14/24 08:59 Height 5 ft 4 in Weight 187 lb BMI 32.1 BP 128/80 Blood Pressure Location Lt brachial Position Sitting Pulse 57 Pulse Source Pulse Oximeter Pulse Oximetry (%) 98 Oxygen Delivery Method Room Air Intake Visit Reasons: pe Intake Note: Patient in december, but states not depressed. Did start crying when asking anxiety questions. 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 Accompanied by: Self / Same As Patient Allergies iopromide [From Ultravist] Allergy (Mild, Verified 04/14/24 09:00) HIVES, FACIAL SWELLING CT Scan dye Allergy (Unknown, Uncoded 04/14/24 09:00) face swelling IVP dye Allergy (Unknown, Uncoded 04/14/24 09:00) facial swelling, petechiea Medication List - Last Reconciled 04/14/24 by Uziel Cantu MD albuterol sulfate 90 mcg/actuation 1 puff inhalation Q4-6H PRN albuterol sulfate 2.5 mg (3 mL) inhalation Q6H PRN 30 days ascorbic acid (vitamin C) 1 g PO DAILY budesonide 0.5 mg (2 mL) inhalation BID 30 days budesonide-formoterol 160-4.5 mcg/actuation (Symbicort) 2 puffs inhalation BID 30 days cholecalciferol (vitamin D3) 50 mcg PO DAILY ciclopirox 0.77% 1 appl topical BID dicyclomine 20 mg PO QID lorazepam 1 mg PO TID PRN metoprolol tartrate 25 mg PO BID mometasone-formoterol 200-5 mcg/actuation (Dulera) 2 puffs inhalation Q12H 30 days multivitamin (Multiple Vitamins tablet) 1 tab PO BID nebulizer and compressor (Home Nebulizer Plus Sidestream) As directed nebulizers As directed nystatin 1 appl topical BID omeprazole 20 mg PO DAILY triamcinolone acetonide 0.1% 1 appl topical BID Tobacco use date assessed: 12/27/23 Dental Screening Dental Screen Date: 04/14/24 Did you have a dental visit in the last 12 months?: Yes Did you have a dental problem in the last 6 months where you did not have access to dental care?: No Was dental information given to patient?: Patient has dentist HPI pe HPI Details asthma hypertension and anxiety; stable; 4 months ago and grieving [facility] Medical History (Updated 04/14/24 @ 12:28 by Uziel Cantu MD) Sinusitis Cough Obesity (BMI 30-39.9) Obesity Asthma Seasonal allergies Arthritis Scoliosis On beta ayush at home Cold-induced asthma PVCs (premature ventricular contractions) Hypertension Tubular adenoma of colon Surgical History S/P laparoscopic sleeve gastrectomy H/O colonoscopy History of toe surgery History of cholecystectomy H/O LEEP History of ankle surgery History of tonsillectomy Family History Father CAD (coronary artery disease) Mother No problems noted. Maternal Grandmother Breast cancer Paternal Grandfather Colon cancer Social History Housing: House Are you a primary palliative care physician to a significant other at home: No Do you presently have visiting nurse or other home services: No Alcohol intake: current Alcohol intake frequency: holidays/special occasions only Patient Tobacco Use Status: Never used Tobacco Tobacco use type: Cigarette e-Cigarette/Vaping Use: Never Used Second Hand Smoke Exposure: No service: No Current occupational status: unemployed Sexual orientation: Straight/Heterosexual Gender identity: Female Cognitive needs: No Hearing needs: No Vision needs: Yes Questionnaire PHQ-9 Over the last 2 weeks, how often have you been bothered by any of the following problems? 1. Little interest or pleasure in doing things: several days 2. Feeling down, depressed, or hopeless: several days (Patients passed in December. ) 3. Trouble falling or staying asleep, or sleeping too much: not at all 4. Feeling tired or having little energy: not at all 5. Poor appetite or overeating: not at all 6. Feeling bad about yourself - or that you are a failure or have let yourself or your family down: not at all 7. Trouble concentrating on things, such as reading the newspaper or watching television: not at all 8. Moving or speaking so slowly that other people could have noticed. Or the opposite - being so fidgety or restless that you have been moving around a lot more than usual: not at all 9. Thoughts that you would be better off or of hurting yourself in some way: not at all Total score: 2 Depression Screening Interpretation: Negative Depression Screening Done: Yes 65795 - PHQ-9 Billing: Yes Source: Developed by Drs. Adrian Varela, Pablo Suh and colleagues, with an educational allison from [email or web address] Thrive Questionnaire Date Thrive assessed: 12/27/23 AUDIT C Alcohol Use Questionnaire (AUDIT-C) 1. How often do you have a drink containing alcohol?: Monthly or less 2. How many drinks containing alcohol do you have on a typical day when you are drinking?: 1 or 2 3. How often do you have six or more drinks on one occasion?: Never Total Score: 1 NATO-7 AMB Questionnaire NATO-7 Date NATO - 7 assessed: 04/14/24 Feeling nervous, anxious, or on edge: 1 = Several days Not being able to stop or control worryin = Several days Worrying too much about different things: 1 = Several days Trouble relaxin = Several days Being so restless that it is hard to sit still: 1 = Several days Becoming easily annoyed or irritable: 1 = Several days Feeling afraid as if something awful might happen: 1 = Several days Total NATO-7 score (0-4 normal; 5-9 mild; 10-14 moderate; 15-21 severe): 7 Source: Developed by Drs. Adrian Varela, Lea Higgins, Pablo Sharpe and colleagues, with an educational allison from [email or web address]. NATO-7 Assessment Billing NATO-7 Assessment Tool: NATO-7 Assessment 26967 Review of Systems Const Denies chills, Denies fatigue, Denies headache(s) and Denies weight loss Eyes Denies change in vision, Denies diplopia and Denies eye pain ENT Denies vertigo, Denies dizziness, Denies headache(s) and Denies nasal discharge Card Denies chest pain, Denies rapid heart rate and Denies dyspnea on exertion Resp Denies chest congestion, Denies cough, Denies pain with cough and Denies dyspnea on exertion GI Denies abdominal pain, Denies hematochezia and Denies change in bowel habits Musc Denies myalgias, Denies arthralgias and Denies joint swelling Skin/Breast Denies lesions and Denies unusual bruising Neuro Denies vertigo, Denies dizziness, Denies headache(s) and Denies focal weakness Endo Denies fatigue Physical exam (Primary Care) Vital Signs: Last Vital Signs Pulse 57 04/14/24 08:59 BP 128/80 04/14/24 08:59 Pulse Ox 98 04/14/24 08:59 Oxygen Delivery Method Room Air 04/14/24 08:59 BMI result Body Mass Index 32.1 Tobacco/Smoking Status: Tobacco use Status Tobacco use date assessed 12/27/23 04/14/24 09:09 Patient Tobacco Use Status Never used Tobacco 04/14/24 09:09 Tobacco use type Cigarette 04/14/24 09:09 e-Cigarette/Vaping Use Never Used 04/14/24 09:09 PHQ-9: PHQ-9 Score PHQ-9: Total score 2 04/14/24 09:09 Depression Screening Interpretation: Negative Thrive Assessment: Date of Thrive Assessment Date Thrive assessed 12/27/23 04/14/24 09:09 Const General: cooperative, healthy appearing and no acute distress Orientation/consciousness: oriented to person, oriented to place and oriented to time HENMT Head: Yes normal to inspection, Yes normocephalic and Yes atraumatic Mouth: Normal oral and palatal mucosa present and tongue normal Throat: Yes posterior oropharynx normal and Yes uvula midline Eyes General: appearance normal, both eyes and all related structures Neck Neck: Yes normal visual inspection, Yes full ROM and Yes no lymphadenopathy Thyroid: Thyroid normal Carotids: normal carotid upstroke Chest Chest palpation & inspection: normal inspection of the chest Resp Effort & Inspection: normal respiratory effort and able to speak in complete sentences Auscultation: clear to auscultation bilaterally Cardio Jugular venous distension: no JVD Palpation: normal PMI Rate: regular rate Rhythm: regular rhythm Heart sounds: S1 normal heart sound present and S2 normal heart sound present GI Inspection: Yes normal to inspection Palpation (GI): Soft to palpation and No hepatosplenomegaly present Auscultation: normal bowel sounds General: Yes no CVA tenderness Back/Spine/Pelvis Back: no CVA tenderness Skin General skin exam: no rashes or lesions noted Neuro General: oriented to person, oriented to place and oriented to time Extrem General: Yes normal to inspection and Yes full ROM Assessment and Plan Assessment & Plan (1) Physical exam: Code(s): Z00.00 - Encounter for general adult medical examination without abnormal findings Plan: stable; do labs (2) Hypertension: Code(s): I10 - Essential (primary) hypertension Plan: stable; same rx (3) Asthma: Code(s): J45.909 - Unspecified asthma, uncomplicated Qualifiers: Asthma severity: moderate Asthma persistence: persistent Asthma complication type: uncomplicated Qualified Code(s): J45.40 - Moderate persistent asthma, uncomplicated Plan: stable; same rx (4) Anxiety: Code(s): F41.9 - Anxiety disorder, unspecified Plan: stable; same rx Medications: Refilled lorazepam 1 mg PO TID PRN 30 tabs 0RF anxiety Coding Level of Care Code Est Pt Prev Care 40-64y(63938) Diagnoses Physical exam Z00.00 Hypertension I10 Moderate persistent asthma without complication J45.40 Asthma severity: moderate Asthma persistence: persistent Asthma complication type: uncomplicated Anxiety F41.9 Additional Codes NATO-7 Assessment Billing - NATO-7 Assessment Tool: NATO-7 Assessment [id number] ([id number])
== END 2024-04-14 09:31 | disposition home or self-care (01) ==
PROVIDERS: PCP Internal Medicine; Visit Provider Internal Medicine
DX: Z00.00 Encounter for general adult medical examination without abnormal findings (principal); I10 Essential (primary) hypertension; J45.40 Moderate persistent asthma, uncomplicated; F41.9 Anxiety disorder, unspecified
CPT/HCPCS: 99396

== ENCOUNTER → 2024-10-16 08:44 | Outpatient (BNVA) | payer BC, SELFPAY | PROVIDERS: PCP Internal Medicine; Visit Provider Internal Medicine ==

== ENCOUNTER 2024-11-01 09:30 | Outpatient (AMB) | payer BC, SELFPAY ==
[2024-11-01 09:36] VITALS: BP 130/82; PULSE 72; O2SAT 97; BMI 34.4
--- NOTE | 2024-11-01 09:36 | A.OFFVIS_ITS ---
Vital Signs 11/01/24 09:36 Height 5 ft 4 in Weight 200 lb 9.93 oz BMI 34.4 BP 130/82 Blood Pressure Location Rt brachial Position Sitting Pulse 72 Pulse Source Pulse Oximeter Pulse Oximetry (%) 97 Oxygen Delivery Method Room Air Intake Visit Reasons: Asthma Allergies iopromide [From Ultravist] Allergy (Mild, Verified 11/01/24 09:39) HIVES, FACIAL SWELLING CT Scan dye Allergy (Unknown, Uncoded 11/01/24 09:39) face swelling IVP dye Allergy (Unknown, Uncoded 11/01/24 09:39) facial swelling, petechiea HPI Comments Details: The patient is a 59 year woman with known history of asthma. Apparently she was in usual state health until back in September 2022 after new year she started developing worsening cough. The cough became nonproductive in very significant. She was having chest tightness and also appreciated wheezing. She went to see a primary care doctor. She was given a rescue inhaler and also prednisone and antibiotics. Initially she felt a little better but then her symptoms persisted. She will need to use her inhaler every day to 0 4 hours. She did not want to go to the ER if she could avoid. Ultimately again she went back to her primary care doctor this time she requested a nebulizer. She did get a nebulizer another course of prednisone antibiotics. On her exam was consistent with wheezing per report. The patient ultimately has been improving. She had requested a pulmonary consultation but she could not get 1 early enough. Therefore she is coming now. Her wheezing is significantly better and her cough as well. She is closer back to baseline. On examination she still has some force excellent Ohri wheezing upon exhalation. Although minimal. At this point the respiratory symptoms are not limiting her exercise capacity ability to do her activities of daily living. Therefore will continue with current respiratory regimen. Will plan to repeat her PFTs and a chest x-ray prior to the next visit in about 3 months. If the patient has any symptoms or any concerns prior to that she can call for an appointment. If the patient does need to be on a maintenance inhaler Symbicort may be a good option to provide with initial maintenance therapy and then she can be tapered down to as needed. 09/27/2023 the patient is here for a pulmonary follow-up visit. The patient has not been doing well. Apparently back around August time she started developing worsening cough chest congestion sore throat. The patient did try [id number] medications with only minimal resolution. She was then given a script for benzo needs which would be helpful just for about an hour and then the symptoms will come back. After that she was given a Z-Jonny which she just finished. She felt that the CPAP helps some. The mucus coming up is usually clear although tenacious and sticky. A my examination the patient does have significant sinus congestion and also cobblestoning with some vesicles on the uvula. This suggest more of a potential upper respiratory illness. In addition to that her respiratory exam is pretty benign. Therefore, will go ahead and treat her for sinusitis at this time. If the patient is no better then will request a chest x-ray. She states that this is not uncommon for her to be sick during the winter months. Will request additional imaging studies and/or laboratories during the next visit. 11/01/2024 the patient is here for a pulmonary follow-up visit. Overall she is doing very well from a respiratory status. She still has the Symbicort. She h as not had any exacerbations and has not required her rescue inhaler at all. This is much different for her. Her imaging study the last CT scan was back from 2023. She had a CT scan that Ramsey Sykes demonstrating a 2 mm pulmonary nodule that had been stable for couple years. Therefore no additional testing is warranted. She is grieving the loss of her who back in 12/25/2023 suddenly. This has been very difficult for her but though she does have a lot of family support. So therefore from a respiratory status she is going to continue with current inhalers. No additional imaging warranted. She is going to continue with the allergy medicine specially coming to the spring and will follow-up in a year's time. If she has any issues prior to that she will call for an earlier assessment. [facility] Medical History (Updated 04/14/24 @ 12:28 by Uziel Cantu MD) Sinusitis Cough Obesity (BMI 30-39.9) Obesity Asthma Seasonal allergies Arthritis Scoliosis On beta ayush at home Cold-induced asthma PVCs (premature ventricular contractions) Hypertension Tubular adenoma of colon Surgical History S/P laparoscopic sleeve gastrectomy H/O colonoscopy History of toe surgery History of cholecystectomy H/O LEEP History of ankle surgery History of tonsillectomy Family History Father CAD (coronary artery disease) Mother No problems noted. Maternal Grandmother Breast cancer Paternal Grandfather Colon cancer Social History Housing: House Are you a primary housekeeper caregiver to a significant other at home: No Do you presently have visiting nurse or other home services: No Alcohol intake: current Alcohol intake frequency: holidays/special occasions only Patient Tobacco Use Status: Never used Tobacco Tobacco use type: Cigarette e-Cigarette/Vaping Use: Never Used Second Hand Smoke Exposure: No service: No Current occupational status: unemployed Sexual orientation: Straight/Heterosexual Gender identity: Female Cognitive needs: No Hearing needs: No Vision needs: Yes Review of Systems Const Denies chills, Denies headache(s) and Denies weight loss ENT Denies headache(s) Card Denies chest pain, Denies syncope, Denies irregular heart rhythm and Denies dyspnea Resp Denies chest congestion, Denies cough and Denies dyspnea GI Denies abdominal pain, Denies change in stool character, Denies nausea and Denies vomiting Musc Denies deformity and Denies joint swelling Neuro Denies syncope and Denies headache(s) Physical Exam Vital Signs: Last Vital Signs Pulse 72 11/01/24 09:36 BP 130/82 11/01/24 09:36 Pulse Ox 97 11/01/24 09:36 Oxygen Delivery Method Room Air 11/01/24 09:36 BMI result Body Mass Index 34.4 Const General: comfortable, no acute distress and alert HEENT General nose exam: Abnormal mucous membranes and turbinates present erythematous Throat: Yes uvular edema (with small vesicles) Neck Neck: Yes no lymphadenopathy Thyroid: Thyroid normal Chest Chest palpation & inspection: normal inspection of the chest Resp Effort & Inspection: normal respiratory effort Auscultation: clear to auscultation bilaterally and no wheezes Cardio Jugular venous distension: no JVD Palpation: normal PMI Rate: regular rate Rhythm: regular rhythm Heart sounds: S1 normal heart sound present and S2 normal heart sound present GI Inspection: Yes normal to inspection Palpation (GI): No hepatosplenomegaly present Skin General skin exam: no rashes or lesions noted Extrem General: Yes no clubbing, cyanosis or edema Assessment & Plan Assessment & Plan (1) Asthma: Code(s): J45.909 - Unspecified asthma, uncomplicated Category: Medical Qualifiers: Asthma complication type: uncomplicated Asthma persistence: persistent Asthma severity: moderate Qualified Code(s): J45.40 - Moderate persistent asthma, uncomplicated (2) Cough: Code(s): R05.9 - Cough, unspecified Category: Medical Qualifiers: Cough type: subacute Qualified Code(s): R05.2 - Subacute cough Plan Benzonates for cough as needed IVORY as needed Symbicort BID F/U 1 yr Coding Level of Care Code Est Pt Level 4 (20653) Diagnoses Moderate persistent asthma without complication J45.40 Asthma complication type: uncomplicated Asthma persistence: persistent Asthma severity: moderate Subacute cough R05.2 Cough type: subacute Time Spent (min) 16
--- OUTSIDE RECORDS SUMMARY | 2024-11-01 10:52 | XMS_ITS | Patient Health Record ---
Author Organization [facility] Address [address] [place] [address] Care Team Providers Care Ribbon Tier Name Role Phone Uziel Cantu MD Primary Care Provider Diane Ribeiro Unavailable [phone] Allergies Allergen (clinical drug ingredient) Drug/Non Drug Allergy documented on EMR Reaction Allergy Type Onset Date Status Iodine swollen eyes/hives Drug Allergy Active Reason For Referral No Information Medications Medication SIG (Take, Route, Frequency, Duration) Notes Start Date End Date Status Multi Vitamin Daily Active Work Note . . Pt to be out of wo rk for min 2 weeks to rest painful foot condition 04/30/2016 Not-Takin g Vitamin C Active Walking Boot/Pneumatic As directed Wear Daily for Until further notice 04/14/2016 Not-Shekhar ing Physical Therapy . . . 2-3x/week for 3- 4 weeks 05/26/2016 Not-Taking Work Note . . . Pt can return to work in walking boot starting 05/19/16 05/18/2016 Not-Taking Fish Oil Not-Taking Ciclopirox Olamine 0.77 % APPLY TO AFFECTED AREAS ON FEET TWICE A DAY for 30 Active Metoprolol & Diet Manage Prod 50 MG as directed Orally Active Ciclopirox Olamine 0.77% external Apply to effected areas twice a day for 30 days 03/12/2016 Not-Taking aspirin baby Not-Shekhar ing LamISIL 250 MG 1 tablet Orally Once a day for 30 days Active Piroxicam 20 MG TAKE 1 CAPSULE BY [facility] EVERY DAY WITH FOOD for 30 Active Vitamin A Active Calcium + D Active LamISIL 250 MG 1 tablet Orally Once a day for 30 days Active LFT . . . Dx: Mycosis (B35 .1), Oral antifungal for 1 days Active Vitamin D Active Social History Tobacco Use: Social History Observation Description Date Details (start date - stop date) Never Smoker NA - NA Tobacco Use/Smoking Question Answer Notes Are you a: nonsmoker Additional Findings: Tobacco Non-User Current no n-smoker Alcohol Screen Question Answer Notes Did you have a drink contain ing alcohol in the past year? Yes How often did you have a dri nk containing alcohol in the past year? Monthly or less (1 point) Points 1 Interpretation Negative Tobacco use other than smoking: Question Answer Notes Are you an other tobacco user? No Plan Of Treatment Pending Test Test Name Order Date MRI : Foot, left 05/18/2016 X ray : Foot, left 2V 04/03/2013 Tc99 3 phase Bone Scan 04/14/2016 *Liver Function Test (LFT) 10/22/2020 *Liver Function Test (LFT) 12/11/2013 *Liver Function Test (LFT) 12/09/2021 X ray : Foot, right 3V 12/09/2021 X ray : Foot, right 3V 10/22/2020 [id number] NAIL, 6 OR MORE 12/11/2013 [id number] NAIL, 1-5 04/03/2013 [id number] NAIL, 1-5 06/12/2013 [id number] Plate 12/11/2013 Insurance Providers Payer Name Payer Address Payer Phone Subscriber Number Group Number Insured Name Patient Relationship to Insured Coverage Start Date Coverage End Date [facility] [address] [place] [address] [id number] Vinod Borges Spouse - patient is the spouse of the insured Medical (General) History Medical History History ICD Code gallstones chicken pox Arthritis asthma Back,Hip,and Knee pain Broken bones High blood pressure Osteoporosis Poor circulation Vericose Veins Joint implants/screws Surgical History Surgery Date(Month/Year) tonsillectomy 1994 ankle surgery right 2000 SCOLYOSIS gastric surgery 11/2019 Hospitalization History Reason Date(Month/Year) [facility], broken rib 11/2013
== END 2024-11-01 11:33 | disposition home or self-care (01) ==
PROVIDERS: PCP Internal Medicine; Visit Provider Hospitalist
DX: J45.40 Moderate persistent asthma, uncomplicated (principal); R05.2 Subacute cough
CPT/HCPCS: 99214

== ENCOUNTER 2025-02-09 10:20 | Outpatient (REF) | payer BC, SELFPAY ==
--- NOTE | ~2025-02-09 | XR_ITS ---
EXAMINATION: XR WRIST 3 OR MORE VIEWS RIGHT HISTORY: M25.531 - Pain in right wrist COMPARISON: There are no prior studies available for comparison. FINDINGS: Three views of the right wrist are submitted. The bones are osteopenic. A lucency in the 5th proximal phalanx may represent an enchondroma. There are focal lucencies in the distal radius and in the metacarpal of the thumb with additional possible lucencies in the proximal branches of the thumb and index finger. There is no fracture or dislocation. The joint spaces are preserved. The soft tissues are unremarkable. XR/XR wrist RT min 3V IMPRESSION: Osteopenia. Focal lucencies in the bones of the wrist and hand as described. Laboratory analysis is recommended to exclude myeloma. Further imaging could include bone survey if indicated. Electronically signed by: Adrian Galvan MD 02/09/2025 11:03 AM EDT
--- OUTSIDE RECORDS SUMMARY | 2025-02-09 11:07 | XMS_ITS | Patient Health Record ---
Author Organization [facility] Address [address] [place] [address] Care Team Providers Care Drop Press Hand Name Role Phone Uziel Cantu MD Primary Care Provider Diane Ribeiro Unavailable [phone] Allergies Allergen (clinical drug ingredient) Drug/Non Drug [...] Piroxicam 20 MG TAKE 1 CAPSULE BY [facility] EVERY DAY WITH FOOD for 30 Active [...] X ray : Foot, right 3V 10/22/2020 [id number] NAIL, 6 OR MORE 12/11/2013 [id number] NAIL, 1-5 04/03/2013 [id number] NAIL, 1-5 06/12/2013 [id number] Plate 12/11/2013 Insurance Providers Payer Name Payer Address Payer Phone Subscriber Number Group Number Insured Name Patient Relationship to Insured Coverage Start Date Coverage End Date [facility] [address] [place] [address] [id number] Vinod Borges Spouse - patient is the spouse of the insured Medical (General) History Medical History History ICD Code gallstones chicken pox Arthritis asthma Back,Hip,and Knee pain Broken bones High blood pressure Osteoporosis Poor circulation Vericose Veins Joint implants/screws Surgical History Surgery Date(Month/Year) tonsillectomy 1994 ankle surgery right 2000 SCOLYOSIS gastric surgery 11/2019 Hospitalization History Reason Date(Month/Year) [facility], broken rib 11/2013
== END 2025-02-09 10:21 | disposition home or self-care (01) ==
LOC: HO.HMGCX 10:20
DX: M25.531 Pain in right wrist (principal)
CPT/HCPCS: 73110

== ENCOUNTER → 2025-02-09 10:27 | Outpatient (BNV) | payer BC, SELFPAY | PROVIDERS: Visit Provider Radiology Diagnostic Radiology | DX: M25.531 Pain in right wrist (principal) | CPT/HCPCS: 73110 ==

== ENCOUNTER 2025-05-16 08:54 | Outpatient (AMB) | payer BC, SELFPAY ==
--- OUTSIDE RECORDS SUMMARY | 2025-05-11 04:30 | XMS_ITS ---
Author Organization [facility] Address [address] [place] [address] Care Team Providers Care Dolphin Researcher Name Role Phone To Lorri Primary Care Provider Unavailab Diane Gabriel Unavailable [phone] Allergies Allergen (clinical drug ingredient) Drug/Non Drug Allergy documented on EMR Reaction Allergy Type Onset Date Status Iodine swollen eyes/hives Drug Allergy Active REASON FOR VISIT Fungal Nails Medications Medication SIG (Take, Route, Frequency, Duration) Notes Start Date End Date Status Ciclopirox Olamine 0.77% external Apply to effected areas twice a day; Duration: 30 days 03/12/2016 Not-Takin g Work Note . . Pt to be out of wo rk for min 2 weeks to rest painful foot condition 04/30/2016 Not-Taking Walking Boot/Pneumatic As directed Wear Daily; Duration: Until further notice 04/14/2016 Not-Taking Physical Therapy . . . 2-3x/week; Duration: 3-4 weeks 05/26/2016 Not-Taking Work Note . . . Pt can return to work in walking boot starting 05/19/16 05/18/2016 Not-Taking Piroxicam 20 MG TAKE 1 CAPSULE BY MOUTH EVERY DAY WITH FOOD; Duration: 30 Not-Taking LamISIL 250 MG 1 tablet Orally Once a day; Duration: 30 days Not-Takin g aspirin baby Not-Shekhar ing Fish Oil Not-Taking Ciclopirox Olamine 0.77 % APPLY TO AFFEC BRYAN AREAS ON FEET TWICE A DAY; Duration: 30 Not-Taking Calcium + D Not-Taki ng Vitamin C Not-Taking LFT . . . Dx: Mycosis (B35.1), Oral antifungal; Duration: 1 days Not-Taking Vitamin A Not-Taking LamISIL 250 MG 1 tablet Orally Once a day; Duration: 30 days Not-Takin g Vitamin D Active Multi Vitamin Daily Active Baby Aspirin Active Metoprolol & Diet Manage Prod 50 MG as directed Orally Active Omeprazole Active Allergy Active Ciprofloxacin Active Vitamin D3 Active LORazepam Active Social History Tobacco Use: Social History Observation Description Date Details (start date - stop date) Never Smoker NA - NA Tobacco use other than smoking: Question Answer Notes Are you an other tobacco user? No Tobacco Control (Standard) Question Answer Notes Tobacco use: Nonsmoker Additional Findings: Tobacco non-user Current no nsmoker AUDIT-C (Standard) Question Answer Notes Did you have a drink contain ing alcohol in the past year? Yes How often did you have a dri nk containing alcohol in the past year? Monthly or less (1 point) How many drinks did you have on a typical day when you were drinking in the past year? 1 or 2 drinks (0 point) How often did you have six o r more drinks on one occasion in the past year? Never (0 point) Points 1 Interpretation Negative Vital Signs Height 5ft 4in in 05/11/2025 Weight 199 lbs 05/11/2025 BMI 34.15 kg/m2 05/11/2025 Blood pressure systolic 123 mm Hg 05/11/20 25 Blood pressure diastolic 75 mm Hg 025 Encounters Encounter Location Date Provider Diagnosis [facility] [address] [address] 05/11/2025 Diane Nichols Onychomycosis B35.1 and Pain in left toe(s) M79.675 Assessments Encounter Date Diagnosis (ICD Code) Assessment Notes Treatment Notes Treatment Clinical Notes Section Notes 05/11/2025 Onychomycosis (ICD-10 - B35.1) 05/11/2025 Pain in left toe(s) (ICD-10 - M79.675) Plan Of Treatment Next Appt Details Follow Up: 6 Months, Reason: Provider Name:Diane hodges, 11/06/2025 09:00:00 AM, [address] [place], [address], Progress Notes * Lilliana SQUIRES MDOB:[birth year] (59 yo F)Acc No.[id number]:05/11/2025 Progress Notes Patient: Lilliana CAZARES Provider: Marilynn Nichols DPM :1965 A ge:59 Y S ex:Female Date:05/11/2025 Address:[address] [place], [place] [address], [id number] Pcp:Lorri Ariza Subjective: * Chief Complaints: * F ungal Nails * HPI: P ainful Nails: Nature: a marge, tender, discolored, thick. Location: G reat toe, Left foot. Duration: , several years. Course: w aliyae. Aggravated by: s hoegear causing difficulty standing/walking. Treatments: , Oral Antifungal, Lamisil in the past. * ROS: G eneral/Constitutional: Nausea d enies. V omiting d enies. H eric Thirst d enies. L oss appetite d enies. C hills d enies. F atigue d enies.?Fever d enies. N ight Sweats d enies. U nexplained weight loss d enies. U nexplained weight gain d enies. H EENTM: Dentures d enies. D izziness d enies. G lasses/contacts a dmits. R etinopathy d enies. B lurred/double vision d enies. T MJ?denies. D ischarge/drainage d enies. I mplants d enies. S ore throat d enies. D ental implants a dmits. H shahrzad of hearing d enies. D ifficulty chewing/swallowing/speaking d enies. N ose bleeds d enies. S ore mouth d enies. ? R espiratory: On Oxygen d enies. P neumonia/pleurisy d enies.?Bronchitis d enies. E mphysema d enies. C oughing d enies. C ough blood?denies. S hortness of breath d enies. W heezing d enies. C ardiovascular: Pacemaker d enies. M ANGLE SHEAR SET UP OPERATOR d enies. W PW d enies. C HF d enies. H eart attack d enies. S eptal defect d enies. R apid beat d enies. C hest pain d enies. A trial Fib. d enies. M urmur/Palpitations a dmits. G astrointestinal: Hemorrhoids a dmits. S tomach/Abdominal pain d enies. D ark blood stool d enies. I rritable bowel d enies. C onstipation d enies. D iarrhea d enies. H ematology: Swelling d enies. C lots d enies. V aricose Veins a dmits. B ruising d enies. B leeding problem d enies. G enitourinary: Blood urine d enies. F requent/Painfu/urination/bladder control a dmits. K idney stones d enies. I nfection (UTI) d enies. N ephropathy d enies. s ex trans dis (STD) d enies. P rostate d enies. M usculoskeletal: Hammertoes a dmits. B unions d enies. B ack Pain a dmits. M uscle Cramps/ Resting d enies. M uscle cramps / walking d enies.?Generalized aches and pains a dmits. W eakness d enies. I nteg.: Rocha d enies. S cars d enies. C orns/calluses?admits. I ngrown nails a dmits. P ainful nails d enies. O pen Sores d enies. R ashes d enies. N eurologic: Difficulty sleeping d enies. B rain disorder d enies. N umbness d enies. B alance trouble d enies. C onfusion d enies. F ainting/blackouts d enies. T ingling d enies. T remors d enies. * Medical History: * Surgical History: t onsillectomy 1994ankle surgery right 2000SCOLYOSIS gastric surgery 11/2019 * Hospitalization/Major Diagno stic Procedure: [facility], broken rib 11/2013 * Family History: M other: alive, Cancer, diagnosed with Other malignant neoplasm of unspecified site, Unspecified essential hypertension. F ather: alive, Cancer, diagnosed with Other malignant neoplasm of unspecified site, Unspecified essential hypertension. P ateermelinda Grand Father: colon cancer. S pouse: stroke, brain bleed. M ateermelinda Grand Father: diagnosed with Family history of arthritis.? * Social History: T obacco Use: T obacco use other than smoking A re you an other tobacco user? N o Tobacco Control (Standard) T obacco use: N onsmoker A dditional Findings: Tobacco non-user C urrent nonsmoker D rugs/Alcohol: D rugs H ave you used drugs other than those for medical reasons in the past 12 months? N o M iscellaneous: C affeine: yes, 1 cup sometimes, decafe. Children: yes, 1. Exercise: yes, walking. Marital status: . Occupation: Retired: [employer]. D rug/Alcohol: A DONIS-C (Standard) D id you have a drink containing alcohol in the past year? Y es H ow often did you have a drink containing alcohol in the past year? M onthly or less (1 point) H ow many drinks did you have on a typical day when you were drinking in the past year? 1 or 2 drinks (0 point) H ow often did you have six or more drinks on one occasion in the past year? N ever (0 point) P oints 1 I nterpretation N egative * Medications: T akingCiprofloxacin LORazepam Vitamin D3 Allergy Baby Aspirin Omeprazole Metoprolol & Diet Manage Prod 50 MG Miscellaneous as directed Orally Multi Vitamin Daily Vitamin D Taking Ciprofloxacin Taking LORazepam Taking Vitamin D3 Taking Allergy Taking Baby Aspirin Taking Omeprazole Taking Metoprolol & Diet Manage Prod 50 MG Miscellaneous as directed Orally Taking Multi Vitamin Daily Taking Vitamin D Not- Taking/PRNVitamin C Calcium + D Vitamin A LFT . . . . Dx: Mycosis (B35.1), Oral antifungal LamISIL 250 MG Tablet 1 tablet Orally Once a day Ciclopirox Olamine 0.77 % Cream APPLY TO AFFECTED AREAS ON FEET TWICE A DAY LamISIL 250 MG Tablet 1 tablet Orally Once a day Piroxicam 20 MG Capsule TAKE 1 CAPSULE BY MOUTH EVERY DAY WITH FOOD Fish Oil aspirin baby Ciclopirox Olamine 0.77% Cream external Apply to effected areas twice a day Walking Boot/Pneumatic As directed Wear Daily Work Note . . . Pt to be out of work for min 2 weeks to rest painful foot condition Work Note . . . . Pt can return to work in walking boot starting 05/19/16 Physical Therapy . . . . 2-3x/week Medication List reviewed and reconciled with the patientNot-Taking/PRN Vitamin C Not-Taking/PRN Calcium + D Not-Taking/PRN Vitamin A Not-Taking/PRN LFT . . . . Dx: Mycosis (B35.1), Oral antifungal Not-Taking/PRN LamISIL 250 MG Tablet 1 tablet Orally Once a day Not-Taking/PRN Ciclopirox Olamine 0.77 % Cream APPLY TO AFFECTED AREAS ON FEET TWICE A DAY Not-Taking/PRN LamISIL 250 MG Tablet 1 tablet Orally Once a day Not- Taking/PRN Piroxicam 20 MG Capsule TAKE 1 CAPSULE BY MOUTH EVERY DAY WITH FOOD Not- Taking/PRN Fish Oil Not-Taking/PRN aspirin baby Not-Taking/PRN Ciclopirox Olamine 0.77% Cream external Apply to effected areas twice a day Not-Taking/PRN Walking Boot/Pneumatic As directed Wear Daily Not-Taking/PRN Work Note . . . Pt to be out of work for min 2 weeks to rest painful foot condition Not-Taking/PRN Work Note . . . . Pt can return to work in walking boot starting 05/19/16 Not-Taking/PRN Physical Therapy . . . . 2-3x/week Medication List reviewed and reconciled with the patient * Allergies: I odine: swollen eyes/hivesyes[Allergies Verified] Objective: * Vitals: H t: 5ft 4in, Wt:199, BMI:34.15, Shoe size: 8.5W, BP:123/75mm Hg, Ht-cm: 162.56 cm, Wt-k.27 kg. * Examination: N ails: NAILS are: E longated, overgrown, dystrophic, lytic, greater than 3mm thick, discolored and friable with crumbly malodorous subungual debris, with pain on palpation, TA. G eneral Examination: GENERAL APPEARANCE: R eveals a pleasant, alert, well-nourished, well-developed, well hydrated individual, who demonstrates proper attention to hygiene/body habitus, and is in no acute distress, Pt serves as own h istorian for office visit today. ORIENTED: p erson, place, and time. N eurological: SENSORY: N eurological exam reveals intact sensorium, pain sensation normal, vibration sensation intact, pinprick sensation is normal in the lower extremities, Pt denies, anesthesia, burning, paresthesia, tingling, B/L. DEEP TENDON REFLEXES: A chilles, 2/4, B/L. V ascular: DP PULSES (B): 3 /4, B/L. PT PULSES (B): 3 /4, B/L. CAPILLARY FILL TIME: i mmediate, all digits, B/L. TROPHIC CONDITION-TEXTURE/ELASTICITY/TURGOR/HAIR GROWTH (B):?normal, B/L. TEMPERTURE GRADIENT (C): w arm to cool, proximal to distal, B/L. PIGMENTATION: n ormal, B/L. EDEMA (C): a bsent, B/L. D ermatologic: SKIN FINDINGS: S kin exam reveals normal texture, elasticity, and turgor. There are no masses. The interspaces are clear. O rthopedic: MUSCLE STRENGTH: 5 /5 all groups in a symmetrical fashion , B/L. Assessment: * Assessment: 1. P ain in left toe(s) - M79.675 2 . O nychomycosis - B35.1 (Primary) Plan: * Treatment: * Procedure Codes: * Preventive Medicine: Counseling: D iscussion: - 03: Office or other outpatient visit for the evaluation and management of a new patient, which required a medically appropriate history and/or examination and LOW level of DECISION MAKING for: 1 STABLE ACUTE UNCOMPLICATED PROBLEM, 2 OR MORE MINOR PROBLEMS, OR 1 STABLE CHRONIC PROBLEM, THAT POSE(S) A LOW RISK FOR MORBIDITY/MORTALITY. The visit on the day of the encounter encompassed interpreting the data and educating the patient as to the nature of their condition, treatment options available according to their individual PMH, meds, allergies, and overall health/living conditions, as well as any potential risks or complications that may occur from a failure to adhere to, and participate in, the recommended course of therapy. The discussion included a complete verbal, and/or written explanation of the examination results, any x-rays taken, the proposed diagnosis, and outline of the treatment plan. A schedule for future care needs was also explained. The patient verbalized an understanding of the instructions at this time and agreed to be an active participant in their treatment. If the patient should think of any questions or concerns after the visit, I have encouraged the patient to call the office. F ungal Nail Counseling: T he patient was counseled on the diagnosis, potential etiologies (including, but not limited to, environmental factors, genetic, immune deficiency), and the multiple treatment options for Onychomycosis. We discussed the risks and benefits of each option from performing no treatment, to ultraviolet light shoe treatment, to laser nail treatment, to applying topical antifungals, to taking oral antifungal medication, to surgical removal of the involved nail(s) with or without performing a matricectomy, or any combination thereof. We discussed the advantages and disadvantages of each of possible treatment and importance for adherence to all the recommended therapies for optimum success. This includes the necessity for weekly emery board self nail home debridements, and control the nail and skin environment as much as possible by only using a fresh, dry pair of shoes/socks each day, as well as keeping the skin as dry as possible through the use of sprays/powders if necessary. The patient was instructed to discard the emery board after use to prevent reinfection of the involved nail(s). We discussed the mycological and visual clinical effectiveness of topical vs oral antifungal treatments as well as each ones potential side effects and/or any patient-specific medication interactions. We discussed the reasons behind the important requirement of regular liver function testing with oral antifungal therapy for safety. Patient questions regarding use, dosage, successful outcomes, blood tests, and possible pharmaceutical interactions were reviewed and the patient verbalized that all answers were clearly understood, The patient presently prefers topical treatment, CUSTOM Topical antifungal compound combination therapy was recommended and rxed. Screening/Special Tests: F all Risk Screening: N o falls in the past year F ALLS: Screening for Future Fall Risk Have you had any falls with injury in the past year? N o * Follow Up: 6 Months * Images: * Sign off status: Completed true * Provider: Marilynn Nichols DPM Date: 0 05/11/2025 Generated for Ricardo zarate/Kory/eTransmitting on: 0 05/16/2025 10:28 AM EDT History and Physical Notes * HPI (History of Present Illness) Category Sub-Category Detail Notes Category Not es Painful Nails Aggravated by: shoegear causing difficulty standing/walking Course: worse Duration: , several years Location: Great toe, Left foot Nature: aching, tender, disc olored, thick Treatments: , Oral Antifungal, L amisil in the past Examination Category Sub-Category Detail Notes Category Not es Neurological SENSORY: Neurological exa m reveals intact sensorium, pain sensation normal, vibration sensation intact, pinprick sensation is normal in the lower extremities, Pt denies, anesthesia, burning, paresthesia, tingling, B/L DEEP TENDON REFLEXES: Achilles, 2/4, B/L Dermatologic SKIN FINDINGS: Skin exam reveal s normal texture, elasticity, and turgor. There are no masses. The interspaces are clear Orthopedic MUSCLE STRENGTH: 5/5 all groups in a symm etrical fashion , B/L General Examination GENERAL APPEARANCE: Reveals a pleasant, alert, well- nourished, well-developed, well hydrated individual, who demonstrates proper attention to hygiene/body habitus, and is in no acute distress, Pt serves as own historian for office visit today ORIENTED: person, place, and t sandy Vascular DP PULSES (B): 3/4, B/L PT PULSES (B): 3/4, B/L CAPILLARY FILL TIME: immediate, all digi ts, B/L TEMPERTURE GRADIENT (C): warm to cool, p roximal to distal, B/L TROPHIC CONDITION-TEXTURE/ELASTICITY/TURGOR/HAIR GROWTH (B): normal, B/L EDEMA (C): absent, B/L PIGMENTATION: normal, B/L Nails NAILS are: Elongated, overg rown, dystrophic, lytic, greater than 3mm thick, discolored and friable with crumbly malodorous subungual debris, with pain on palpation, TA
--- OUTSIDE RECORDS SUMMARY | 2025-05-14 07:49 | XMS_ITS | Encounter Summary ---
Author Organization [facility] Address [facility] [employer] 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] Procedures CHG CT GUIDANCE NEEDLE PLACEMENT Bone marrow biopsy CT (IR) Referral ID Status Reason Start Date Expiration Date Visits Re quested Visits Authorized [id number] 1 1 Encounter Details Date Type Department Care Team (Latest Contact Info) Description 05/14/2025 7:49 AM EDT - 05/14/2025 9:36 AM EDT Hospital Encounter [facility] [address] [place] [phone] Jorge Youngblood MD [address] [place] [address] [email or web address] Discharge Disposition: Home or Self Care Social History Tobacco Use Types Packs/Day Years Used Date Smoking Tobacco: Never Smokeless Tobacco: Never Alcohol Use Standard Drinks/Week Comments Yes 0 (1 standard drink = 0.6 oz pur e alcohol) occasionally - special occ Education Answer Date Recorded Are you interested in more education? Not on saw e 01/02/2023 Are you concerned about learning? Not on file 01/02/2023 No 01/02/2023 No 01/02/2023 Digital Access Answer Date Recorded No 01/29/2023 No 01/29/2023 Reliable internet access at home? Not on file 01/29/2023 Device with a working camera? Not on file Intimate Partner Violence Answer Date R ecorded Are you denied basic needs s uch as food, clothing, or medical care? No 05/14/2025 In the past 12 months have y ou been in a relationship with a person who hurts, threatens, or tries to control you? No 05/14/2025 Are you denied basic needs s uch as food, clothing, or medical care? No 05/14/2025 In the past 12 months have y ou been in a relationship with a person who hurts, threatens, or tries to control you? No 05/14/2025 Comments No Sex and Gender Information Value Date Recorded Sex Assigned at Female 06/09/2022 8:48 AM EDT Legal Sex Female 7:10 AM EDT Gender Identity Female 06/09/2022 8:48 AM EDT Sexual Orientation Straight 12/21/2023 11 :10 AM EDT documented as of this encounter Last Filed Vital Signs Vital Sign Reading Time Taken Comments Blood Pressure 134/85 05/14/2025 9:24 AM EDT Pulse - - Temperature - - Respiratory Rate 17 05/14/2025 8:49 AM EDT Oxygen Saturation 95% 05/14/2025 9:29 AM EDT Inhaled Oxygen Concentration - - Weight - - Height - - Body Mass Index - - documented in this encounter Discharge Instructions * Attachments The following attachments cannot be sent through Care Everywhere. * Bone Marrow Aspiration and Biopsy: Post op (Spanish) documented in this encounter Medications at Time of Discharge albuterol 2.5 mg /3 mL (0.083 %) nebulizer solution 12/01/2022 ascorbic acid, vitamin C, (VITAMIN C) 250 MG tablet Take 250 mg by mouth daily. aspirin 81 mg Cap Take 81 mg by mouth daily. 06/05/2022 budesonide (PULMICORT) 0.5 mg/2 mL nebulizer solution 11/27/2023 budesonide-formot jean carlos 160-4.5 mcg/actuation inhaler 12/01/2023 cetirizine (ZYRTEC) 10 MG tablet Take 10 mg by mouth daily. cholecalciferol (VITAMIN D3) 4,000 unit tablet Take 1,000 Units by mouth daily. ciclopirox (CICLODAN) 0.77 % cream APPLY TO AFFECTED AREAS ON FEET TWICE A DAY for 30 LORazepam (ATIVAN) 1 MG tablet Take 1 mg by mouth 3 (three) times a day as needed for anxiety. 03/07/2024 metoprolol tartrate (LOPRESSOR) 25 MG tablet Take 25 mg by mouth 2 (two) times a day. 12/08/2006 multivitamin-mine rals-lutein (CENTRUM SILVER) Tab Take 1 tablet by mouth daily. omeprazole (PRILOSEC) 20 MG capsule Take 20 mg by mouth 2 (two) times a day. 07/08/2022 documented as of this encounter Progress Notes * Jorge Youngblood MD - 05/14/2025 8:24 AM EDT History Patient Active Problem List Diagnosis Other chest pain Benign essential hypertension Gastric hyperacidity Obesity (BMI 30.0-34.9) Leg pain, posterior, right Abnormal electrocardiogram Pap smear abnormality of cervix/human papillomavirus (HPV) positive PAC (premature atrial contraction) Lytic bone lesions on xray Plasma cell disorder Past Medical History: Diagnosis Date Arthritis Asthma cold induced asthma - no recent inhaler use Broken tooth Bronchitis 01/2024 Colon polyp Fracture right ankle Hypertensive disorder Presence of tooth-root and mandibular implants PVC (premature ventricular contraction) Scoliosis Varicose vein of leg Wears glasses Past Surgical History: Procedure Laterality Date BARIATRIC SURGERY 2019 gastric sleeve CERVICAL BIOPSY W/ LOOP ELECTRODE EXCISION COLONOSCOPY N/A 05/02/2024 Performed by Avinash Ocapmo MD at [facility] ENDOSCOPY ORIF ANKLE FRACTURE Right TONSILLECTOMY VARICOSE VEIN SURGERY Family History Problem Relation Age of Onset Colon cancer Paternal Grandfather Social History Tobacco Use Smoking status: Never Smokeless tobacco: Never Vaping Use Vaping status: never used Substance Use Topics Alcohol use: Yes Comment: occasionally - special occ Drug use: Never Current Facility-Administered Medications Medication Dose Route Frequency Provider Last Rate Last Admin sodium chloride (NS) 0.9 % syringe flush 3 mL 3 mL Intravenous PRN Annemarie Mcpherson PA-C Vitals BP (!) 165/85 SpO2 99% Pre-Sedation Evaluation Chief Complaint: Interventional Radiology Procedure HPI: Lilliana Borges is a 59 y.o. female presenting for Interventional Radiology Procedure. ROS/Med History General Patient has no history of anesthetic complications. Physical Exam NPO Status: Yes Airway: Mallampati score is III. Dental: Patient has no notable dental hx. Cardiovascular: The cardiovascular exam is normal. Pulmonary: The pulmonary exam is normal. Neurological: The neurological exam is normal. Sedation Plan ASA Score: 2 Results and Data Reviewed: I personally reviewed the lab results. I independently viewed the patient's imaging studies. I personally reviewed relevant previous medical records. Sedation Plan: Patient will be placed on cardiac catheterization technologist and continuous pulse oximetry. Intravenous access will bemaintained. Bag valve mask, oxygen and suction will be available at the bedside. Emergency airway equipment will be immediately available. Medication Plan: Versed (midazolam) initial dose 1mg IV push may repeat x2, then 0.5-1mg IV push every 3 minutes x 8doses PRN titrate to moderate sedation. Fentanyl initial dose 50mcgIV push may repeat x2, then 12.5mcg-50mcg IV push every 3 minutes x 6 doses PRN titrate to moderate sedation. Informed Consent: Informed consent obtained from: patient Discharge Plan: Discharge Plan: Has a ride with responsible adult documented in this encounter Plan of Treatment Upcoming Encounters Date Type Department Care Team (Late st Contact Info) Description 02/23/2025 Procedure Pass [address] [address] 07/30/2025 4:10 PM EST Office Visit [facility] OBGYN & Midwifery [address] [place] [address] Noemi Chopra MD [address] [facility], [address] [place] [address] 09/28/2025 9:45 AM EST Appointment [address] [place] [address] System, Provider Not In, PhD [facility] [address] [place] [address] 03/26/2026 8:00 AM EDT Office Visit [facility] [address] [place] [address] [address]rd Floor, [address] [place] [address] Lul Naranjo MD [address] [place] [id number] [email or web address] [email or web address] Results Name Type Priority Associated Diagnoses Date /Time Plasma cell disorder, FISH Lab Routine 05/14/2025 9:00 AM EDT Anatomic Pathology Pathology and Cytology Routine 05/14/2025 9:00 AM EDT Scheduled Orders Name Type Priority Associated Diagnoses Order Schedule Plasma cell disorder, FISH Lab Routine Once for 1 Occurrences starting 05/14/2025 until 05/14/2025 Rapid Heme Panel Bone Marrow Lab Routine Once for 1 Occurrences starting 05/14/2025 until 05/14/2025 Anatomic Pathology Pathology and Cytology Routine Once for 1 Occurrences starting 05/15/2025 until 05/15/2025 documented as of this encounter Procedures Procedure Name Priority Date/Time Associated Diagnosis Comments [facility] CYTOGENETICS TRACKING, MARROW Routine 05/14/2025 9:00 AM EDT HC FLOW CYTOMETRY CELL SURF MARKER TECHL ONLY 1ST Routine 05/14/2025 9:00 AM EDT HETLON STAIN, MARROW Routine 05/14/2025 9:00 AM EDT INTERVENTIONAL RADIOLOGY Routine 05/14/2025 8:53 AM EDT Plasma cell disorder CBC AND DIFFERENTIAL STAT 05/14/2025 8:07 AM EDT documented in this encounter Results * Helton stain, marrow (05/14/2025 9:00 AM EDT) HELTON STAIN MARROW DONE [facility] 05/14/2025 9:00 AM EDT 05/14/2025 9:15 PM EDT [employer] Juliana JonesGomez MB LAB BLOOD ORDERABLES Final Result [address] [address] * [facility] cytogenetics tracking, marrow (05/14/2025 9:00 AM EDT) [facility] cytogenetics tracking Sample forwarded to [facility]. See Pathology section for results. [facility] 05/14/2025 9:00 AM EDT 05/14/2025 9:15 PM EDT Jolancer Juliana MelgarGomez [facility] LAB BLOOD ORDERABLES Final Result Performing Organization Address City/[facility]/ZIP Co de Phone Number [address] [address] * Leukemia/Lymphoma Phenotype (05/14/2025 9:00 AM EDT) LEUKEM/LYMPH PHENO SEE NOTE 05:05 PM [facility] DPT OF LAB MED AND PAT+ Comment: (NOTE) Test Result Flag Unit RefValue Leukemia/Lymphoma, Phenotype LCMS Result Performed Final Diagnosis: SEE NOTE Bone marrow, flow cytometric immunophenotyping: Normal immunophenotyping results. No monotypic B-cell population or increase in blasts identified. No monotypic plasma cell population is identified. Comment: Correlation of the flow cytometry results with the bone marrow aspirate and biopsy findings, clinical history and other laboratory features is required for a definitive diagnosis. If desired, we can provide diagnostic services as part of a hematopathology consultation. Please contact the signing pathologist at if you have further questions regarding these analyses. Reviewed by: Russel Orona M.D., Ph.D. Special Studies: SEE NOTE %Lymphs: 9% Results: Blasts: Not increased by CD45/side scatter and CD34. B-cells: No monotypic; normal expression pattern of CD19, CD10, surface kappa and lambda. T-cells/NK-cells: No aberrant phenotype by CD3 and CD16. Plasma cells: No monotypic; normal expression pattern of CD19, CD38, CD45, CD138, and cytoplasmic kappa and lambda. Quality assessment: Specimen received within validated guidelines. Microscopic Description SEE NOTE A Bgmbbc-Nbzery-erduaam slide prepared from the flow cytometry specimen is examined. The specimen contains maturing hematopoietic precursors. No morphologic features of acute leukemia, lymphoma or a plasma cell proliferative disorder are identified. ADDITIONAL INFORMATION This test was developed using an analyte specific reagent. Its performance characteristics were determined by [facility] in a manner consistent with CLIA requirements. This test has not been cleared or approved by the U.S. Food and Drug Administration. Reason for Referral PLASMA CELL DISORDER Specimen Source Bone Marrow 05/14/2025 9:00 AM EDT 05/14/2025 10:36 AM EDT us Jorge Youngblood MD LAB BLOOD ORDERABLES Final Result [facility] DPT OF LAB MED AND PAT+ [address] [place] [address] * BONE BIOPSY WITH FLUOROSCOPY GUIDANCE (IR) (05/14/2025 8:53 AM EDT) Anatomical Region Laterality Modality X-Ray Angiograph y Narrative 05/14/2025 9:28 AM EDT History: Plasma cell dyscrasia. Positive multiple myeloma screen. Patient referred for image guided bone marrow biopsy. Procedure: Procedure performed in the IR fluoroscopy suite. Sedation: Moderate Procedural (Conscious) Sedation was administered and monitored by Interventional Radiology nursing staff and supervised by the undersigned IR (licensed independent provider). The following parameters were monitored: oxygen saturation, heart rate, blood pressure and end tidal CO2. The licensed independent provider spent 11 minutes of continuous face-to face time with the patient. Medications: Fentanyl 125 mcg delivered in 3 divided doses Midazolam 2.5 mg IV delivered in 3 divided doses Buffered 1% lidocaine anesthetic 10 cc infiltrated subcutaneously Preliminary imaging through the pelvis with the patient prone performed allowing for marking of site over the right iliac crest. Skin prepped and draped sterilely. Local anesthetic placed down to the right iliac crest. 11-gauge T LOC bone biopsy needle advanced into left ilium and marrow aspiration performed retrieving samples which were placed into appropriate vials and a Gricel dish. Core sample of bone then retrieved. Needle removed and hemostasis achieved with pressure. EBL: Minimal. < 5 cc. Complications: Procedure well-tolerated. No immediate complication. Specimens: 16 cc bone marrow (placed in appropriate vials and clot placed into formalin) and core of medullary bone placed into formalin. Radiation tracking: Fluoroscopy time 0.8 minutes, DAP 265.81 mGy/m Findings: Preliminary images show grossly normal appearance to the pelvis. No focal bone lesion identified. No concerning incidental abnormality. Subsequent advancement of bone biopsy needle into left medial ilium midportion allowing for retrieval of marrow specimen and core sampling of bone. Impression: Fluoroscopy-guided bone marrow biopsy performed as described with moderate sedation, maintained 11 minutes. us Marcio SOTO IMG IR Final Resu lt * (ABNORMAL) CBC and differential (05/14/2025 8:07 AM EDT) WBC 10.35 4.00 - 11.00 K/uL [facility] RBC 4.65 4.00 - 5.20 M/uL [facility] HGB 13.3 12.0 - 16.0 g/dL [facility] HCT 42.0 36.0 - 46.0 % [facility] PLT 147(L) 150 - 450 K/uL [facility] MCV 90.3 80.0 - 100.0 fL [facility] MCH 28.6 27.0 - 31.0 pg [facility] MCHC 31.7(L) 32.0 - 36.0 g/dL [facility] RDW 13.5 11.5 - 14.5 % [facility] MPV 12.0 8.4 - 12.0 fL [facility] NRBC 0.00 0.00 /100 WBCs [facility] ABSOLUTE NRBC 0.00 0.00 K/uL [facility] DIFF METHOD Auto [facility] NEUTS 66.0 48.0 - 76.0 % [facility] LYMPHS 24.6 18.0 - 41.0 % [facility] MONOS 5.5 4.0 - 11.0 % [facility] EOS 3.1 0.0 - 5.0 % [facility] BASOS 0.5 0.0 - 1.5 % [facility] Granulocytes, immature (%) 0.3 0.0 - 0.9 % [facility] ABSOLUTE NEUTS 6.83 1.92 - 7.60 K/uL [facility] ABSOLUTE LYMPHS 2.55 0.72 - 4.10 K/uL [facility] ABSOLUTE MONOS 0.57 0.16 - 1.10 K/uL [facility] ABSOLUTE EOS 0.32 0.00 - 0.50 K/uL [facility] ABSOLUTE BASOS 0.05 0.00 - 0.15 K/uL [facility] Granulocytes, immature 0.03 0.00 - 0.09 K/uL [facility] Blood 05/14/2025 8:07 AM EDT 05/14/2025 8:10 AM EDT us Annemarie Mcpherson PA-C LAB BLOOD ORDERABLES Yolanda edmonds Result [address] [place] [address] [address] documented in this encounter Visit Diagnoses Diagnosis 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 documented in this encounter Administered Medications Inactive Administered Medications - up to 3 most recent administrations Medication Order MAR Action Action Date Dose Rate Site sodium chloride (NS) 0.9 % syringe flush 3 mL 3 mL, Intravenous, As needed, line care, Starting on Wed05/14/25 at 0751, Pre-Procedure IR (day of), Per Institutional IV Line Care Policy. documented in this encounter Active and Recently Administered Medications Times are shown in EDT. PRN Medication Order 05/12/2025 05/13/2025 05/14/2025 fentaNYL (PF) (SUBLIMAZE) injection (CANCELED) As needed, Starting on Wed05/14/25 at 0841, Intra-op/procedure 0841 (Given - Provid er: Esequiel Metz RN)0845 (Given - Provider: Esequiel Metz RN)0850 (Given - Provider: Esequiel Metz RN) lidocaine (XYLOCAINE) 1% injection (CANCELED) As needed, Starting on Wed05/14/25 at 0842, Intra-op/procedure 0842 (Given - Provid er: Jorge Youngblood MD - Comment: sodium bicarb buffer) midazolam (PF) (VERSED) injection Soln (CANCELED) As needed, Starting on Wed05/14/25 at 0841, Intra-op/procedure 0841 (Given - Provid er: Esequiel Metz RN)0845 (Given - Provider: Esequiel Metz RN)0850 (Given - Provider: Esequiel Metz RN) sodium chloride (NS) 0.9 % syringe flush 3 mL 3 mL, Intravenous, As needed, line care, Starting on Wed05/14/25 at 0751, Pre-Procedure IR (day of), Per Institutional IV Line Care Policy. documented in this encounter Care Teams Mrb Engineer Relationship Specialty Start Date End Date Lorri Ariza PA [address] [place] [address] [place] [address] PCP - General Physician Propulsion Systems Engineer 02/23/25 Marcio Gomez MBBS [address] [place] [id number] [email or web address] Internal Medicine 02/14/25 documented as of this encounter Additional Source Comments The information contained in this document represents components of the legal health record. It is not the complete legal health record.[facility]
--- OUTSIDE RECORDS SUMMARY | 2025-05-14 08:12 | XMS_ITS | Encounter Summary ---
Author Organization [facility] Address [address] [place] [address] Phone Care Team Providers Care Senior Analyst Market Intelligence Name Role Phone Marcio Gomez MBBS Unavailable [phone] Lorri Ariza Primary Care Provide r Encounter Details Date Type Department Care Team (Latest Contact Info) Description 05/14/2025 8:12 AM EDT - 05/14/2025 9:31 AM EDT Hospital Encounter [facility] Molecular DX Lab LM [address] [place] [address] Discharge Disposition: Home or Self Care Social [...] AM EDT documented as of this encounter Medications at Time of Discharge [...] day. 07/08/2022 documented as of this encounter Plan of Treatment Upcoming Encounters Date Type Department Care Team (Late st Contact Info) Description 02/23/2025 Procedure Pass [facility], [address] [address] 07/30/2025 4:10 PM EST Office Visit [facility] O[facility]YN & Midwifery [address] [place] [address] Noemi Chopra MD [address] [facility], [address] [place] [address] [email or web address] 09/28/2025 9:45 AM EST Appointment [address] [address] System, Provider Not In, PhD [employer] [address] [address] 03/26/2026 8:00 AM EDT Office Visit [facility] [address] [place] [address] 3rd Floor, [address] [place] [address] Lul Naranjo MD [address] [place] [phone] [email or web address] [email or web address] Results Name Type Priority Associated Diagnoses Date /Time Rapid Heme Panel Pathology and Cytology Routine 05/14/2025 12:00 AM EDT Scheduled Orders Name Type Priority Associated Diagnoses Orde r Schedule Rapid Heme Panel Pathology and Cytology Routine Once for 1 Occurrences starting 05/15/2025 until 05/15/2025 documented as of this encounter Visit Diagnoses Not on filedocumented in this encounter Care Teams Senior Analyst Market Intelligence Relationship Specialty Start Date End Date Lorri Ariza PA [address] [place] [address] [address] PCP - General Physician Public Health Analyst 02/23/25 Marcio Gomez MBBS [address] [place] [phone] [email or web address] Internal Medicine 02/14/25 documented as of this encounter Additional Source Comments The information contained in this document represents components of the legal health record. It is not the complete legal health record.[facility]
--- OUTSIDE RECORDS SUMMARY | 2025-05-14 09:00 | XMS_ITS | Encounter Summary ---
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] Procedures CHG CT GUIDANCE NEEDLE PLACEMENT Bone marrow biopsy CT (IR) Referral ID Status Reason Start Date Expiration Date Visits Re quested Visits Authorized [id number] 1 1 Encounter Details Date Type Department Care Team (Late st Contact Info) Description 05/14/2025 9:00 AM EDT - 05/14/2025 9:55 AM EDT Surgery [facility] Cardiovascular And Interventional Radiology [address] [place] [phone] Jorge Youngblood MD [address] [place] [address] Bone Biopsy with Fluoroscopy Guidance Surgery Details Date/Time Status Location OR Service Patient Class Case Class Case Type Trauma Case? 05/14/2025 9:00 AM Posted [facility] CVIR LAB Procedure Room Radiology Outpatient Panel 1 Procedure LRB Anes Op Region Wound Class Comments Bone Biopsy with Fluoroscopy Guidance N/A Surgeon Surgeon Role Service Panel Jorge Youngblood MD Primary Radiology 1 documented in this encounter Social History Tobacco Use Types Packs/Day Years [...] Bone Marrow Aspiration and Biopsy: Post op (Niuean) documented in this encounter Medications at Time [...] EXCISION COLONOSCOPY N/A 05/02/2024 Performed by Avinash Ocampo MD at [facility] ENDOSCOPY ORIF ANKLE FRACTURE Right TONSILLECTOMY VARICOSE [...] Sedation Plan: Patient will be placed on night monitor and continuous pulse oximetry. Intravenous access will [...] st Contact Info) Description 02/23/2025 Procedure Pass [facility], [facility] [address] [place] [address] 07/30/2025 4:10 PM EST Office Visit [facility] OBGYN & Midwifery [address] [place] [address] Noemi Chopra MD 22 [facility], [address] [place] [address] [email or web address] 09/28/2025 9:45 AM EST Appointment [facility] [address] [place] [address] System, Provider Not In, PhD [address] [address] 03/26/2026 8:00 AM EDT Office Visit [facility] [address] [facility] 3rd Floor, [address] [place] [address] Lul Naranjo MD [address] [place] [phone] [email or web address] [email or web address] Results Name Type Priority Associated Diagnoses [...] Procedure Name Priority Date/Time Associated Diagnosis Comments [facility] CYTOGENETICS TRACKING, MARROW Routine 05/14/2025 9:00 AM EDT HC FLOW CYTOMETRY CELL SURF MARKER TECHL ONLY 1ST Routine 05/14/2025 9:00 AM EDT HELTON STAIN, MARROW Routine 05/14/2025 9:00 AM EDT INTERVENTIONAL RADIOLOGY Routine 05/14/2025 8:53 AM EDT Plasma cell disorder CBC AND DIFFERENTIAL STAT 05/14/2025 8:07 AM EDT documented in this encounter Results * Helton stain, marrow (05/14/2025 9:00 AM EDT) HELTON STAIN MARROW DONE [facility] 05/14/2025 9:00 AM EDT 05/14/2025 9:15 PM EDT Critical access hospital Juliana MelgarGomez [facility] LAB BLOOD ORDERABLES Final Result Performing Organization Address City/[facility]/ZIP Co de Phone Number [address] [address] * [facility] cytogenetics tracking, marrow (05/14/2025 9:00 AM EDT) [facility] cytogenetics tracking Sample forwarded to [facility]. See Pathology section for results. [facility] 05/14/2025 9:00 AM EDT 05/14/2025 9:15 PM EDT [facility] Gomez [facility] LAB BLOOD ORDERABLES Final Result Performing Organization Address City/[facility]/ZIP Co de Phone Number [address] [address] * Leukemia/Lymphoma Phenotype (05/14/2025 9:00 AM EDT) LEUKEM/LYMPH PHENO SEE NOTE 05:05 PM [facility] DPT OF LAB MED AND PAT+ [...] validated guidelines. Microscopic Description SEE NOTE A Gfiuei-Aixrnr-nmorebe slide prepared from the flow cytometry specimen is examined. The specimen contains maturing hematopoietic precursors. No morphologic features of acute leukemia, lymphoma or a plasma cell proliferative disorder are identified. ADDITIONAL INFORMATION This test was developed using an analyte specific reagent. Its performance characteristics were determined by [facility] in a manner consistent with CLIA requirements. This test has not been cleared or approved by the U.S. Food and Drug Administration. Reason for Referral PLASMA CELL DISORDER Specimen Source Bone Marrow 05/14/2025 9:00 AM EDT 05/14/2025 10:36 AM EDT Jorge Youngblood MD LAB BLOOD ORDERABLES Final Result [facility] DPT OF LAB MED AND PAT+ [address] [place] [address] * BONE BIOPSY WITH FLUOROSCOPY GUIDANCE (IR) [...] described with moderate sedation, maintained 11 minutes. Marcio SOTO IMG IR Final Resu lt * (ABNORMAL) CBC and differential (05/14/2025 8:07 AM EDT) WBC 10.35 4.00 - 11.00 K/uL [facility] RBC 4.65 4.00 - 5.20 M/uL [facility] HGB 13.3 12.0 - 16.0 g/dL [facility] HCT 42.0 36.0 - 46.0 % [facility] PLT 147(L) 150 - 450 K/uL [facility] MCV 90.3 80.0 - 100.0 fL [facility] MCH 28.6 27.0 - 31.0 pg [facility] MCHC 31.7(L) 32.0 - 36.0 g/dL [facility] RDW 13.5 11.5 - 14.5 % [facility] MPV 12.0 8.4 - 12.0 fL [facility] NRBC 0.00 0.00 /100 WBCs [facility] ABSOLUTE NRBC 0.00 0.00 K/uL [facility] DIFF METHOD Auto [facility] NEUTS 66.0 48.0 - 76.0 % [facility] LYMPHS 24.6 18.0 - 41.0 % [facility] MONOS 5.5 4.0 - 11.0 % [facility] EOS 3.1 0.0 - 5.0 % [facility] BASOS 0.5 0.0 - 1.5 % [facility] Granulocytes, immature (%) 0.3 0.0 - 0.9 % [facility] ABSOLUTE NEUTS 6.83 1.92 - 7.60 K/uL [facility] ABSOLUTE LYMPHS 2.55 0.72 - 4.10 K/uL [facility] ABSOLUTE MONOS 0.57 0.16 - 1.10 K/uL [facility] ABSOLUTE EOS 0.32 0.00 - 0.50 K/uL [facility] ABSOLUTE BASOS 0.05 0.00 - 0.15 K/uL [facility] Granulocytes, immature 0.03 0.00 - 0.09 K/uL [facility] Blood 05/14/2025 8:07 AM EDT 05/14/2025 8:10 AM EDT us Annemarie Mcpherson PA-C LAB BLOOD ORDERABLES Yolanda edmonds Result [facility] [address] [place] [address] documented in this encounter Visit Diagnoses Diagnosis 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 documented in this encounter Administered Medications Inactive Administered Medications - up to 3 most recent administrations Medication Order MAR Action Action Date Dose Rate Site fentaNYL (PF) (SUBLIMAZE) injection As needed, Starting on Wed05/14/25 at 0841, Intra-op/procedure Given 05/14/2025 8:50 AM EDT 25 mcg Given 05/14/2025 8:45 AM EDT 50 mcg Given 05/14/2025 8:41 AM EDT 50 mcg lidocaine (XYLOCAINE) 1% injection As needed, Starting on Wed05/14/25 at 0842, Intra-op/procedure Given 05/14/2025 8:42 AM EDT 10 mL Right Buttock midazolam (PF) (VERSED) injection Soln As needed, Starting on Wed05/14/25 at 0841, Intra-op/procedure Given 05/14/2025 8:50 AM EDT 0.5 mg Given 05/14/2025 8:45 AM EDT 1 mg Given 05/14/2025 8:41 AM EDT 1 mg sodium chloride (NS) 0.9 % syringe flush [...] Intravenous, As needed, line care, Starting on 05/14/25 at 0751, Pre-Procedure IR (day of), Per Institutional IV Line Care Policy. documented in this encounter Care Teams Supervisor Sleeping Bag Department Relationship Specialty Start Date End Date Lorri Ariza PA [address] [place] [address] [place] [address] PCP - General Physician Fireproof Door Maker 02/23/25 Marcio Gomez MBBS [address] [place] [address] [email or web address] Internal Medicine 02/14/25 documented as of this encounter Additional Source Comments The information contained in this document represents components of the legal health record. It is not the complete legal health record.[facility]
--- OUTSIDE RECORDS SUMMARY | 2025-05-14 09:32 | XMS_ITS | Encounter Summary ---
Author Organization [facility] Address [address] [place] [address] Phone Care Team Providers Care Retail Sales Representative Name Role Phone Marcio Gomez MBBS Unavailable [phone] Lorri Ariza Primary Care Provide r Encounter Details Date Type Department Care Team (Latest Contact Info) Description 05/14/2025 9:32 AM EDT Hospital Encounter [facility] Molecular DX Lab LM [address] [place] [address] Discharge Disposition: Home or Self Care Social [...] st Contact Info) Description 02/23/2025 Procedure Pass [facility], [address] [address] 07/30/2025 4:10 PM EST Office Visit [facility] OBGYN & Midwifery [address] [place] [address] Noemi Chopra MD 22 [facility], [address] [place] [address] [email or web address] 09/28/2025 9:45 AM EST Appointment [facility], [facility] [address] [place] [address] System, Provider Not In, PhD Partners [facility] [address] [place] [address] 03/26/2026 8:00 AM EDT Office Visit [facility] [address] [facility] 3rd Floor, [address] [place] [address] Lul Naranjo MD [address] [place] [address] documented as of this encounter Visit Diagnoses Not on filedocumented in this encounter Care Teams Retail Sales Representative Relationship Specialty Start Date End Date Lorri Ariza PA [address] [place] [address] [address] PCP - General Physician [employer] Corps Officer 02/23/25 Marcio Gomez MBBS [address] [place] [address] [email or web address] Medicine 02/14/25 documented as of this encounter Additional Source Comments The information contained in this document represents components of the legal health record. It is not the complete legal health record.[facility]
--- OUTSIDE RECORDS SUMMARY | 2025-05-14 09:33 | XMS_ITS | Encounter Summary ---
Author Organization [facility] Address [address] [place] [address] Phone Care Team Providers Care Outboard System Operator Name Role Phone Marcio Gomez MBBS Unavailable [phone] Lorri Ariza Primary Care Provide r Encounter Details Date Type Department Care Team (Latest Contact Info) Description 05/14/2025 9:33 AM EDT - 05/14/2025 11:59 PM EDT Hospital Encounter [facility] Cytogenetics [address] [place] [address] Discharge Disposition: Home or Self Care Social [...] st Contact Info) Description 02/23/2025 Procedure Pass [facility], Mammography- Main [address] [address] 07/30/2025 4:10 PM EST Office Visit [facility] OBGYN & Midwifery [address] [place] [address] [place] [address] Noemi Chopra MD 22 [facility], [address] [place] [address] [email or web address] 09/28/2025 9:45 AM EST Appointment [facility], Mammography- [address] [address] System, Provider Not In, PhD Partners [address] [address] 03/26/2026 8:00 AM EDT Office Visit [facility] [address] [place] [address] 3rd Floor, [address] [place] [address] Lul Naranjo MD [address] [place] [phone] [email or web address] [email or web address] Results Name Type Priority Associated Diagnoses Date /Time Cytogenetics Pathology and Cytology Routine 05/14/2025 12:00 AM EDT Scheduled Orders Name Type Priority Associated Diagnoses Orde r Schedule Cytogenetics Pathology and Cytology Routine Once for 1 Occurrenc es starting 05/15/2025 until 05/15/2025 documented as of this encounter Visit Diagnoses Not on filedocumented in this encounter Care Teams Outboard System Operator Relationship Specialty Start Date End Date Lorri Ariza PA [address] [place] [address] [address] PCP - General Physician Weighmaster Lead 02/23/25 Marcio Gomez MBBS [address] [place] [address] [email or web address] Internal Medicine 02/14/25 documented as of this encounter Additional Source Comments The information contained in this document represents components of the legal health record. It is not the complete legal health record.[facility]
--- NOTE | 2025-05-16 09:00 | A.OFFPC_ITS ---
Vital Signs 3 05/16/25 09:02 Height 5 ft 4 in Weight 206 lb BMI 35.4 BP 120/76 Blood Pressure Location Lt brachial Position Sitting Pulse 74 Pulse Source Pulse Oximeter Pulse Oximetry (%) 98 Oxygen Delivery Method Room Air Intake Visit Reasons: JAMES DR Cantu Neon Glass Blower Required: No Accompanied by: Self / Same As Patient Allergies iopromide (From Ultravist) Allergy (Mild, Verified 05/16/25 09:19) HIVES, FACIAL SWELLING CT Scan dye Allergy (Unknown, Uncoded 05/16/25 09:19) face swelling IVP dye Allergy (Unknown, Uncoded 05/16/25 09:19) facial swelling, petechiea Medication List - Last Reconciled 05/16/25 by Lorri Ariza PA-C albuterol sulfate 2.5 mg (3 mL) inhalation Q6H PRN 30 days albuterol sulfate 90 mcg/actuation 1 puff inhalation Q4-6H PRN ascorbic acid (vitamin C) 1 g PO DAILY budesonide 0.5 mg (2 mL) inhalation BID 30 days budesonide-formoterol 160-4.5 mcg/actuation (Symbicort) 2 puffs inhalation BID 30 days cholecalciferol (vitamin D3) 50 mcg PO DAILY ciclopirox 0.77% 1 appl topical BID lorazepam 1 mg PO TID PRN metoprolol tartrate 25 mg PO BID mometasone-formoterol 200-5 mcg/actuation (Dulera) 2 puffs inhalation Q12H 30 days multivitamin (Multiple Vitamins tablet) 1 tab PO BID nebulizer and compressor (Home Nebulizer Plus Sidestream) As directed nebulizers As directed nystatin 1 appl topical BID omeprazole 20 mg PO DAILY triamcinolone acetonide 0.1% 1 appl topical BID Tobacco use date assessed: 05/16/25 Dental Screening Dental Screen Date: 05/16/25 Did you have a dental visit in the last 12 months?: Yes Did you have a dental problem in the last 6 months where you did not have access to dental care?: No Was dental information given to patient?: Patient has dentist HPI JAMES DR Cantu 2 HPI0 Details 59-year-old female with past medical his tory of obesity, hypertension, asthma, GERD, myeloma and anxiety last seen 10/[address] Cantu coming in for transfer of care. In review of the notes, patient was complaining of wrist pain in February after a fall and x-ray was ordered which revealed focal lucencies concerning for myeloma and referral was placed to Hematology/Oncology at that time. She was seen by Hematology/Oncology at [facility] 04/04/2025 ordered for blood work and advised to follow up in 2 weeks. Patient also follows with pulmonology last seen 10/2024 for asthma continue on Symbicort b.i.d. and Ivory as needed and follow up in 1 year. Presenting for follow-up on monoclonal gammopathy and management of multiple chronic conditions. Monoclonal gammopathy was identified following blood work that revealed M proteins, leading to a bone marrow biopsy conducted two days prior to the visit. A PET scan is scheduled to further evaluate the condition, with arrangements made to expedite the process due to scheduling delays. The patient has a history of cold-induced asthma, which is well-managed with Symbicort and a nebulizer as needed, particularly during the winter months. Anemia has been a concern, and the patient has started taking iron supplements twice a week due to low vegetable intake and a history of anemia. Anxiety developed after the passing of her , initially managed with lorazepam, which the patient has since weaned off due to side effects. The patient has a history of gastroesophageal reflux disease (GERD), managed with omeprazole twice daily, with good symptom control. Hemorrhoids are present, and the patient uses a stool softener daily to manage symptoms, especially since starting iron supplements. 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 Mammogram: 09/2025 scheduled with [facility] Pap smear: 07/2025 with [facility] diamond sawer Colonoscopy: 04/2024 repeat in 5 years [facility] Medical History Sinusitis Cough Obesity (BMI 30-39.9) Obesity Asthma Seasonal allergies Arthritis Scoliosis On beta ayush at home Cold-induced asthma PVCs (premature ventricular contractions) Hypertension Tubular adenoma of colon Surgical History S/P laparoscopic sleeve gastrectomy H/O colonoscopy History of toe surgery History of cholecystectomy H/O LEEP History of ankle surgery History of tonsillectomy Family History Father CAD (coronary artery disease) Mother No problems noted. Maternal Grandmother Breast cancer Paternal Grandfather Colon cancer Social History Housing: House Are you a primary account executive healthcare to a significant other at home: No Do you presently have visiting nurse or other home services: No Alcohol intake: current Alcohol intake frequency: holidays/special occasions only Patient Tobacco Use Status: Never used Tobacco Tobacco use type: Cigarette e-Cigarette/Vaping Use: Never Used Second Hand Smoke Exposure: No service: No Current occupational status: unemployed Sexual orientation: Straight/Heterosexual Gender identity: Female Cognitive needs: No Hearing needs: No Vision needs: Yes Questionnaire PHQ-9 Over the last 2 weeks, how often have you been bothered by any of the following problems? 1. Little interest or pleasure in doing things: not at all 2. Feeling down, depressed, or hopeless: not at all 3. Trouble falling or staying asleep, or sleeping too much: not at all 4. Feeling tired or having little energy: not at all 5. Poor appetite or overeating: not at all 6. Feeling bad about yourself - or that you are a failure or have let yourself or your family down: not at all 7. Trouble concentrating on things, such as reading the newspaper or watching television: not at all 8. Moving or speaking so slowly that other people could have noticed. Or the opposite - being so fidgety or restless that you have been moving around a lot more than usual: not at all 9. Thoughts that you would be better off or of hurting yourself in some way: not at all Total score: 0 Depression Screening Interpretation: Negative Depression Screening Done: Yes 10714 - PHQ-9 Billing: Yes Source: Developed by Drs. Adrian Varela, Lea Higgins, Pablo Sharpe and colleagues, with an educational allison from [employer]. Thrive Questionnaire Date Thrive assessed: 05/16/25 I am a: Patient What is your living situation today?: I have a steady place to live Within the past 12 months, did the food you bought not last and you didn't have the money to get more?: Sometimes True Within the past 12 months, did you worry whether your food would run out before you got money to buy more?: Sometimes True Do you have trouble paying for medicines?: No Do you have trouble getting transportation to medical appointments?: No Do you have trouble paying your heating and electricity bill?: Yes Do you have trouble taking care of your child, family member or friend?: No Do you have trouble with day-to-day activities such as bathing, preparing meals, shopping, managing finances, etc.?: No Are you currently unemployed and looking for a job?: No Are you interested in more education?: No Please select the resources that you would like help with: None Currently or been in a relationship where the following occur: No concerns reported THRIVE Score: 3 AUDIT C Alcohol Use Questionnaire (AUDIT-C) 1. How often do you have a drink containing alcohol?: Monthly or less 2. How many drinks containing alcohol do you have on a typical day when you are drinking?: 1 or 2 3. How often do you have six or more drinks on one occasion?: Never Total Score: 1 NATO-7 AMB Questionnaire NATO-7 Date NATO - 7 assessed: 05/16/25 Feeling nervous, anxious, or on edge: 0 = Not at all Not being able to stop or control worryin = Not at all Worrying too much about different things: 0 = Not at all Trouble relaxin = Not at all Being so restless that it is hard to sit still: 0 = Not at all Becoming easily annoyed or irritable: 0 = Not at all Feeling afraid as if something awful might happen: 0 = Not at all Total NATO-7 score (0-4 normal; 5-9 mild; 10-14 moderate; 15-21 severe): 0 Source: Developed by Drs. Adrian Varela, Lea Higgins, Pablo Sharpe and colleagues, with an educational allison from [employer]. NATO-7 Assessment Billing NATO-7 Assessment Tool: NATO-7 Assessment 53612 Review of Systems Const Denies body aches, Denies chills, Denies fever(s), Denies headache(s) and Denies poor appetite Eyes Reports no additional complaints ENT Denies dizziness and Denies headache(s) Card Denies chest pain, Denies syncope, Denies edema, Denies irregular heart rhythm, Denies lightheadedness and Denies dyspnea Resp Denies cough and Denies dyspnea GI Denies abdominal pain, Denies constipation, Denies diarrhea, Denies nausea and Denies vomiting Reports no additional complaints Musc Reports no additional complaints and Denies abnormal gait Skin/Breast Reports system reviewed and no additional complaints, except as documented Neuro Denies abnormal gait, Denies dizziness, Denies syncope and Denies headache(s) Psych Reports no additional complaints Physical exam (Primary Care) Vital Signs: Last Vital Signs Pulse 74 05/16/25 09:02 BP 120/76 05/16/25 09:02 Pulse Ox 98 05/16/25 09:02 Oxygen Delivery Method Room Air 05/16/25 09:02 BMI result Body Mass Index 35.4 Tobacco/Smoking Status: Tobacco use Status Tobacco use date assessed 05/16/25 05/16/25 09:07 Patient Tobacco Use Status Never used Tobacco 05/16/25 09:07 Tobacco use type Cigarette 05/16/25 09:07 e-Cigarette/Vaping Use Never Used 05/16/25 09:07 PHQ-9: PHQ-9 Score PHQ-9: Total score 0 05/16/25 10:36 Depression Screening Interpretation: Negative Thrive Assessment: Date of Thrive Assessment Date Thrive assessed 05/16/25 05/16/25 09:07 Currently or been in a relationship where the following occur: No concerns reported Const General: cooperative, healthy appearing, comfortable and no acute distress Orientation/consciousness: patient oriented x3 HENMT Head: Yes normocephalic Ears: hearing grossly normal bilaterally General nose exam: Normal external nose present Eyes General: appearance normal, both eyes and all related structures Conjunctivae: conjunctivae normal Neck Neck: Yes full ROM and Yes no lymphadenopathy Resp Effort & Inspection: normal respiratory effort Auscultation: clear to auscultation bilaterally, no crackles, no rales, no rhonchi and no wheezes Cardio Rate: regular rate Rhythm: regular rhythm Skin General skin exam: no rashes or lesions noted Full body images: 2 1. procedural site from bone marrow bx with no erythema, drainage or warmth Neuro General: patient oriented x3 Gait exam (Neuro): Normal gait present Extrem General: Yes normal to inspection, Yes full ROM and No edema Psych Affect: normal affect Attitude: cooperative Insight: Good insight present (Psych) Judgement: Good judgement present (Psych) Coding Level of Care Code Est Pt Level 4 (29636) Diagnoses Monoclonal gammopathy D47.2 Anxiety F41.9 Hypertension I10 Obesity E66.9 Chronic GERD K21.9 Abnormal LFTs R94.5 Tubular adenoma of colon D12.6 Moderate persistent asthma without complication J45.40 Asthma complication type: uncomplicated Asthma persistence: persistent Asthma severity: moderate Osteopenia M85.80 Hemorrhoid K64.9 Onychomycosis B35.1 Additional Codes NATO-7 Assessment Billing - NATO-7 Assessment Tool: NATO-7 Assessment 01087 ([id number]) PHQ-9 - 51626 - PHQ-9 Billing: Yes ([id number]) Assessment & Plan Assessment & Plan (1) Monoclonal gammopathy: Comment: [facility] hematology/oncology 2024 Code(s): D47.2 - Monoclonal gammopathy Category: Medical Plan: Following with [facility] hematology/oncology for investigation after incidental finding on wrist XR 02/2025. The patient is scheduled for a PET scan to further evaluate the monoclonal gammopathy, with arrangements made to expedite the process due to scheduling delays. Follow-up with hematology is planned post-PET scan to discuss results and further management. Procedural site from bone marrow bx was checked today. Area is clean and dry without signs of infection and no dressing was applied. Patient to continue to keep the area clean and avoid scrubbing or soaking the area. (2) Anxiety: Code(s): F41.9 - Anxiety disorder, unspecified Category: Medical Plan: Continue with lorazepam as needed. Feels anxiety is well managed at this time. (3) Hypertension: Code(s): I10 - Essential (primary) hypertension Category: Medical Plan: Continue on current blood pressure medication. Avoid salt intake and encourage healthy diet and regular exercise. Following with [facility] cardiology as well. (4) Obesity: Code(s): E66.9 - Obesity, unspecified Category: Medical Plan: Healthy diet and regular exercise is encouraged. (5) Chronic GERD: Code(s): K21.9 - Gastro-esophageal reflux disease without esophagitis Category: Medical Plan: Avoid trigger foods such as citrus, tomato products, soda, caffeine, spicy foods and other foods that may be irritating to your stomach. Avoid laying flat 3-4 hours after eating and elevate the head of the bed 30 degrees to prevent acid from moving into the esophagus. Continue on Omeprazole BID (6) Abnormal LFTs: Comment: her tests are fine and no further w/u needed; reassured Code(s): R94.5 - Abnormal results of liver function studies Category: Medical Plan: Last blood work with [facility] was within normal limits and liver tests have normalized. (7) Tubular adenoma of colon: Comment: 04/2024 repeat in 5 years Code(s): D12.6 - Benign neoplasm of colon, unspecified Category: Medical Plan: 04/2024 repeat in [address] Castro. (8) Asthma: Code(s): J45.909 - Unspecified asthma, uncomplicated Category: Medical Qualifiers: Asthma complication type: uncomplicated Asthma persistence: persistent Asthma severity: moderate Qualified Code(s): J45.40 - Moderate persistent asthma, uncomplicated Plan: Asthma currently controlled on present medications. Continue on Symbicort BID and IVORY as needed.? Avoid triggers such as allergies. (9) Osteopenia: Code(s): M85.80 - Other specified disorders of bone density and structure, unspecified site Category: Medical Plan: Plan for repeat bone density screening. Advised to increase dietary intake of calcium to 1,200mg daily and continue with Vitamin D supplement. (10) Hemorrhoid: Code(s): K64.9 - Unspecified hemorrhoids Category: Medical Plan: The patient uses a stool softener daily to manage hemorrhoid symptoms, especially since starting iron supplements. No further interventions were discussed during the visit. (11) Onychomycosis: Code(s): B35.1 - Tinea unguium Category: Medical Plan: Continue to follow with podiatry. Plan During the visit, we discussed the need for a PET scan to further evaluate the monoclonal gammopathy, with plans to expedite the process due to scheduling delays. We also reviewed the management of cold-induced asthma, anemia, and anxiety, ensuring that the current treatment plans are effective. The patient is advised to continue with her current medications and follow up with hematology post-PET scan. We also discussed the management of GERD, hemorrhoids, athlete's foot, and toenail fungus, with no changes to the current treatment plans. The importance of regular follow-ups and monitoring was emphasized, and the patient was encouraged to reach out if any new symptoms arise. This note was constructed using voice recognition software. While every effort has been made to ensure accuracy and roof tile layer, still areas may have been included sometimes these areas may affect the content or meeting of the given symptoms. Total time spent caring for the patient today was 30 minutes. This includes time spent before the visit reviewing the chart, time spent during the visit, and time spent after the visit and documentation. Patient was informed and verbally consented to the use of an ambient scribe for clinic note documentation during this visit. Orders: Orders 2 TSH reflex Free T4 Today Z13.29 - Encounter for screening for other suspected endocrine disorder Vitamin D 25-OH Total Today M85.80 - Other specified disorders of bone density and structure, unspecified site, Z13.21 - Encounter for screening for nutritional disorder XR DEXA axial skeleton Today M85.80 - Other specified disorders of bone density and structure, unspecified site, Z78.0 - Asymptomatic menopausal state Lipid Panel Today Z13.220 - Encounter for screening for lipoid disorders Vitamin B12 and Folate Today M85.80 - Other specified disorders of bone density and structure, unspecified site, Z13.21 - Encounter for screening for nutritional disorder Medications: New 2 ciclopirox 0.77% 1 appl topical BID 15 grams 0RF Refilled 2 omeprazole 20 mg PO DAILY 90 caps 2RF
[2025-05-16 09:02] VITALS: BP 120/76; PULSE 74; O2SAT 98; BMI 35.4
--- OUTSIDE RECORDS SUMMARY | 2025-05-16 10:28 | XMS_ITS | Encounter Summary ---
Author Organization [facility] Address [facility] [employer] [facility] [address] [place] [phone] Phone Care Team Providers Care Scarfer Operator Name Role Phone Uziel Cantu MD Primary Care Provider Marcio Gomez MBBS Unavailable [phone] Lorri Ariza Primary Care Provide r Encounter Details Date Type Department Care Team (Late st Contact Info) Description 06/09/2022 Procedure Pass [facility] [address] [place] [address] Social History Tobacco Use Types Packs/Day Years Used Date Smoking Tobacco: Never Smokeless Tobacco: Never Comments Unknown Sex and Gender Information Value Date Recorded Sex Assigned at Female 06/09/2022 8:48 AM EDT Legal Sex Female 7:10 AM EDT Gender Identity Female 06/09/2022 8:48 AM EDT Sexual Orientation Straight 12/21/2023 11 :10 AM EDT documented as of this encounter Plan of Treatment Upcoming Encounters Date Type Department Care Team (Late st Contact Info) Description 02/23/2025 Procedure Pass [facility] [address] [place] [address] 07/30/2025 4:10 PM EST Office Visit [facility] [address] [place] [address] [place] [address] Noemi Chopra MD [address] [facility], [address] [place] [address] 09/28/2025 9:45 AM EST Appointment [facility], [facility]- [address] [address] System, Provider Not In, [facility] [address] [address] 03/26/2026 8:00 AM EDT Office Visit [facility] [address] [place] [address] 3rd Floor, [address] [place] [address] Lul Naranjo MD [address] [place] [phone] [email or web address] documented as of this encounter Visit Diagnoses Not on filedocumented in this encounter Care Teams Scarfer Operator Relationship Specialty Start Date End Date Uziel Cantu MD [address] [place] [address] Dr Inman [address] [address] PCP - General Internal Medicine 01/19/22 02/22/25 Lorri Ariza PA [address] [place] [address] Dr Inman [address] [place] [address] PCP - General Physician Field Service Manager 02/23/25 Marcio Gomez MBBS [address] [place] [phone] [email or web address] Internal Medicine 02/14/25 documented as of this encounter Additional Source Comments The information contained in this document represents components of the legal health record. It is not the complete legal health record.[facility]
--- OUTSIDE RECORDS SUMMARY | 2025-05-16 10:28 | XMS_ITS | Encounter Summary ---
Author Organization [facility] Address [facility] [employer] [facility] [address] [place] [address] Phone Care Team Providers Care Farm General Manager Name Role Phone Uziel Cantu MD Primary Care Provider [phone] Marcio oGmez MBBS Unavailable [phone] Lorri Ariza Primary Care Provide r Encounter Details Date Type Department Care Team (Late st Contact Info) Description 02/24/2023 Procedure Pass [facility], [facility] Scan - [address] [id number] Social History Tobacco Use Types Packs/Day Years [...] with a working camera? Not on file Comments No Sex and Gender Information Value Date Recorded Sex Assigned at Female 06/09/2022 8:48 AM EDT Legal Sex Female 7:10 AM EDT Gender Identity Female 06/09/2022 8:48 AM EDT Sexual Orientation Straight 12/21/2023 11 :10 AM EDT documented as of this encounter Plan of Treatment Upcoming Encounters Date Type Department Care Team (Late st Contact Info) Description 02/23/2025 Procedure Pass [address] [address] 07/30/2025 4:10 PM EST Office Visit [facility] [address] [place] [address] Noemi Chopra MD [address] [facility], [address] [place] [address] [email or web address] 09/28/2025 9:45 AM EST Appointment [address] [address] System, Provider Not In, [place] [address] 03/26/2026 8:00 AM EDT Office Visit [facility] [address] [facility] 3rd Floor, [address] [place] [address] Lul Naranjo MD [address] [place] [phone] [email or web address] documented as of this encounter Visit Diagnoses Not on filedocumented in this encounter Care Teams Farm General Manager Relationship Specialty Start Date End Date Uziel Cantu MD [address] [place] [address] Dr Inman [address] [place], [place] [address] [place] [address] PCP - General Internal Medicine 01/19/22 02/22/25 Lorri Ariza PA [address] [place] [address] [place] [address] PCP - General Physician Instructor Business Education 02/23/25 Marcio Gomez MBBS [address] [place] [phone] [email or web address] Internal Medicine 02/14/25 documented as of this encounter Additional Source Comments The information contained in this document represents components of the legal health record. It is not the complete legal health record.[facility]
--- OUTSIDE RECORDS SUMMARY | 2025-05-16 10:28 | XMS_ITS | Encounter Summary ---
Author Organization [facility] Address [address] [place] [address] [place] [address] Phone Care Team Providers Care Drafter Plumbing Name Role Phone Uziel Cantu MD Primary Care Provider [phone] Marcio Gomez MBBS Unavailable [phone] Lorri Ariza Primary Care Provide r Encounter Details Date Type Department Care Team (Late st Contact Info) Description 12/02/2022 Transcribe Orders Virtual Department [address] [place] [address] Son Mosley MD [address] [place] [address] [place] [address] Asthma, unspecified asthma severity, unspecified whether complicated, unspecified whether persistent (Primary Dx) Social History Tobacco Use Types Packs/Day Years Used Date Smoking Tobacco: Never Smokeless Tobacco: Never Alcohol Use Standard Drinks/Week Comments Yes 0 (1 standard drink = 0.6 oz pur e alcohol) occasionally Comments No Sex and Gender Information Value Date Recorded Sex Assigned at Female 06/09/2022 8:48 AM EDT Legal Sex Female 7:10 AM EDT Gender Identity Female 06/09/2022 8:48 AM EDT Sexual Orientation Straight 12/21/2023 11 :10 AM EDT documented as of this encounter Plan of Treatment Upcoming Encounters Date Type Department Care Team (Late st Contact Info) Description 02/23/2025 Procedure Pass [facility] [place] [address] [address] 07/30/2025 4:10 PM EST Office Visit [facility] [address] [place] [address] Noemi Chopra MD [address] [facility], [address] [place] [address] [email or web address] 09/28/2025 9:45 AM EST Appointment [address] [address] System, Provider Not In, [place] [address] 03/26/2026 8:00 AM EDT Office Visit [facility] [address] [place] [address] 3rd Floor, [address] [place] [address] Lul Naranjo MD [address] [place] [address] [email or web address] documented as of this encounter Results * Pulmonary Function Test Reason for Exam: Asthma; Type of PFT Test: Spirometry with bronchodilator, DLCO, Lung Volumes; Performing Location: [facility] (12/09/2022 11:28 AM EDT) [facility] FEV1 2.04 liters FVC 2.44 liters FEV1/FVC 84 % TLC 3.70 liters DLCO 16.86 ml/mmHg sec Anatomical Region Laterality Modality Other Impressions 12/09/2022 11:28 AM EDT PULMONARY FUNCTION STUDIES Full pulmonary function studies were performed on this 57 y.o. year-old female for evaluation of asthma. Review of the medical record reveals that the patient is a never smoker. Prior pulmonary function studies are not available for comparison. SPIROMETRY: The FEV1 is normal at 2.04 L or 81% predicted. The FVC is mildly impaired at 2.44 L or 76% predicted. The FEV1/FVC ratio is normal at 84%. After the administration of a bronchodilator agent, there is no significant change. Mid flows and peak flows are normal. FLOW-VOLUME LOOPS: Evaluation of the flow-volume loops reveals normal morphology of both the inspiratory and expiratory limbs with no significant difference when comparing the tracings performed pre- and post-bronchodilator. LUNG VOLUME MEASUREMENTS BY PLETHYSMOGRAPHY: The total lung capacity is mildly impaired at 3.70 L or 72% predicted. The functional residual capacity is moderately impaired at 1.72 L or 64% predicted. Of note, the ERV is markedly impaired, likely representing the imprint of body habitus. DIFFUSION CAPACITY: The diffusion capacity is normal at 16.86 mL/mmHg sec or 85% predicted. Resting oxygen saturation is 97% on room air. IMPRESSION: Abnormal pulmonary function studies as evidenced primarily by an isolated mild restrictive ventral defect which, in the context of a markedly impaired ERV and elevated BMI, may be secondary to extrapulmonary restriction and the imprint of body habitus. Additional contributions from interstitial lung disease, pleural effusions, neuromuscular weakness and/or musculoskeletal deformities could also be considered. Spirometry reveals no evidence of airflow imitation and no bronchodilator response. The diffusion capacity is normal. Son Mosley MD PFT ORDERABLES Final Result documented in this encounter Visit Diagnoses Diagnosis Asthma, unspecified asthma severity, unspecified whether complicated, unspecified whether persistent- Primary Asthma, unspecified asthma severity, unspecified whether complicated, unspecified whether persistent documented in this encounter Care Teams Drafter Plumbing Relationship Specialty Start Date End Date Uziel Cantu MD [address] [place] [address] Dr Inman [address] [place] [address] PCP - General Internal Medicine 01/19/22 02/22/25 Lorri Ariza PA [address] [place] [address] Dr Inman [address] [place] [address] PCP - General Physician Print Producer 02/23/25 Marcio Gomez MBBS [address] [place] [address] [email or web address] Internal Medicine 02/14/25 documented as of this encounter Additional Source Comments The information contained in this document represents components of the legal health record. It is not the complete legal health record.[facility]
--- OUTSIDE RECORDS SUMMARY | 2025-05-16 10:28 | XMS_ITS | Encounter Summary ---
Author Organization [facility] Address [address] [place] [address] [address] [place] [address] Phone Care Team Providers Care Hotel Receptionist Name Role Phone Marcio Gomez Unavailable [phone] Lorri Ariza Primary Care Provide r Encounter Details Date Type Department Care Team (Late st Contact Info) Description 05/02/2025 Telephone [facility] [address] [place] [address] Marcio Gomez MBBS [address] [place] [address] [email or web address] Social History Tobacco Use Types Packs/Day Years [...] as food, clothing, or medical care? No 05/02/2024 In the past 12 months have y ou been in a relationship with a person who hurts, threatens, or tries to control you? No 05/02/2024 Are you denied basic needs s [facility] as food, clothing, or medical care? No 05/02/2024 In the past 12 months have y ou been in a relationship with a person who hurts, threatens, or tries to control you? No 05/02/2024 Comments No Sex and Gender Information Value Date Recorded Sex Assigned at Female 06/09/2022 8:48 AM EDT Legal Sex Female 7:10 AM EDT Gender Identity Female 06/09/2022 8:48 AM EDT Sexual Orientation Straight 12/21/2023 11 :10 AM EDT documented as of this encounter Progress Notes * Cat Ocasio - 05/16/2025 10:24 AM EDT I called [facility], spoke w/ Tamela and pt is on to call list. * Cat Ocasio - 05/14/2025 12:56 PM EDT 05/14/25 - order, demographics and notes faxed to [facility] * Yumiko Beckford - 05/14/2025 10:54 AM EDT 05/11/25 - Pt LVM stating she received a call from this number, however no message was left so she iscalling back. Pt also stated she is scheduled for a CT guided biopsy on Wednesday. C/b requested to [phone]. * Yumiko Beckford - 05/11/2025 3:27 PM EDT Per 05/02/25 scheduling order: Patient needs PET scan in couple of weeks Patient needs bone marrow biopsy by IR in couple of weeks Follow-up with me in 3 to 4 weeks PET records faxed to Grace w/ requested scan date on 05/24/25. * Morganeloina Tamela - 05/02/2025 4:08 PM EDT NO PA patient can go to any facility * Morganeloina Tamela - 05/02/2025 4:06 PM EDT NO PA required for PET CT. Patient can go to any facility documented in this encounter Plan of Treatment Upcoming Encounters Date Type Department Care Team (Late st Contact Info) Description 02/23/2025 Procedure Pass [address] [address] 07/30/2025 4:10 PM EST Office Visit [facility] [address] [place] [address] [place] [address] Noemi Chopra MD 22 [facility], [address] [place] [address] 09/28/2025 9:45 AM EST Appointment [address] [address] System, Provider Not In, [facility] [address] [address] 03/26/2026 8:00 AM EDT Office Visit [facility] [address] [place] [address] [address]rd Floor, [address] [place] [address] Lul Naranjo MD [address] [place] [address] documented as of this encounter Visit Diagnoses Not on filedocumented in this encounter Care Teams Hotel Receptionist Relationship Specialty Start Date End Date Lorri Ariza PA [address] [place] [address] [place] [address] PCP - General Physician Financial Aid Administrator 02/23/25 Marcio Gomez MBBS [address] [place] [address] [email or web address] Internal Medicine 02/14/25 documented as of this encounter Additional Source Comments The information contained in this document represents components of the legal health record. It is not the complete legal health record.[facility]
--- OUTSIDE RECORDS SUMMARY | 2025-05-16 10:29 | XMS_ITS | Encounter Summary ---
Author Organization [facility] Address [facility] [employer] [facility] [address] [place] [address] Phone Care Team Providers Care Senior Maintenance Machinist Name Role Phone Uziel Cantu MD Primary Care Provider [phone] Marcio Gomez MBBS Unavailable [phone] Lorri Ariza Primary Care Provide r Encounter Details Date Type Department Care Team (Late st Contact Info) Description 05/02/2024 Procedure Pass [facility] Admitting Dept Virtual Department [address] [place], [place] [id number] Social History Tobacco Use Types Packs/Day Years [...] 05/02/2024 Are you denied basic needs s uch [...] st Contact Info) Description 02/23/2025 Procedure Pass [address] [address] 07/30/2025 4:10 PM EST Office Visit [facility] O[facility]YN & Midwifery [address] [place] [address] [place] [address] Noemi Chopra MD 22 [facility], [address] [place] [address] 09/28/2025 9:45 AM EST Appointment [address] [address] System, Provider Not In, [place] [address] 03/26/2026 8:00 AM EDT Office Visit [facility] [address] [place] [address] [address]rd Floor, [address] [place] [address] Lul Naranjo MD [address] [place] [address] documented as of this encounter Visit Diagnoses Not on filedocumented in this encounter Care Teams Senior Maintenance Machinist Relationship Specialty Start Date End Date Uziel Cantu MD [address] [place] [address] [address] PCP - General Internal Medicine 01/19/22 02/22/25 Lorri Ariza PA [address] [place] [address] [place] [address] PCP - General Physician Human Resources Associate 02/23/25 Marcio Gomez MBBS [address] [place] [address] [email or web address] Internal Medicine 02/14/25 documented as of this encounter Additional Source Comments The information contained in this document represents components of the legal health record. It is not the complete legal health record.[facility]
--- OUTSIDE RECORDS SUMMARY | 2025-05-16 10:29 | XMS_ITS | Encounter Summary ---
Author Organization [facility] Address [facility] [address] [place] [address] Phone Care Team Providers Care Optical Laboratory Manager Name Role Phone Uziel Cantu MD Primary Care Provider [phone] Marcio Gomez MBBS Unavailable [phone] Lorri Ariza Primary Care Provide r Encounter Details Date Type Department Care Team (Late st Contact Info) Description 10/18/2023 Ancillary Orders [facility], X-Ray - [place] [address] [place] [address] Son Mosley MD [address] [place] [address] Dr Ferreira [place] [phone] Cough, unspecified type (Primary Dx) Social History Tobacco Use Types [...] st Contact Info) Description 02/23/2025 Procedure Pass [address] [address] 07/30/2025 4:10 PM EST Office Visit [facility] OBGYN & Midwifery [address] [place] [address] [place] [address] Noemi Chopra MD 22 [facility], [address] [place] [address] 09/28/2025 9:45 AM EST Appointment [address] [address] System, Provider Not In, [facility] [address] [address] 03/26/2026 8:00 AM EDT Office Visit [facility] [address] [place] [address] 3rd Floor, [address] [place] [address] Lul Naranjo MD [address] [place] [address] [email or web address] documented as of this encounter Results * XR CHEST PA AND LATERAL 2 VIEWS (10/18/2023 3:24 PM EST) Anatomical Region Laterality Modality Chest Computed Radiogr aphy 10/18/2023 5:26 PM EST Impressions 10/18/2023 5:26 PM EST No acute findings. Narrative 10/18/2023 5:26 PM EST XR CHEST PA AND LATERAL 2 VIEWS Referring clinician's provided indication for this examination in Epic: Cough COMPARISON: None FINDINGS: Lungs: Clear lungs. Pleura: No pleural effusion. No pneumothorax Heart/Mediastinum: Heart size normal. Bones/Soft Tissues: No acute finding. Surgical clips project over the upper abdomen. Procedure Note Easton Whitfield MD, PATRICIA - 10/18/2023 XR CHEST PA AND LATERAL 2 VIEWS Referring clinician's provided indication for this examination in Epic:Cough COMPARISON: None FINDINGS: Lungs: Clear lungs. Pleura: No pleural effusion. No pneumothorax Heart/Mediastinum: Heart size normal. Bones/Soft Tissues: No acute finding. Surgical clips project over theupper abdomen. IMPRESSION: No acute findings. Son Mosley MD IMG XR CHEST Final Result documented in this encounter Visit Diagnoses Diagnosis Cough, unspecified type- Primary Cough, unspecified type documented in this encounter Care Teams Optical Laboratory Manager Relationship Specialty Start Date End Date Uziel Cantu MD [address] [place] [address] [address] PCP - General Internal Medicine 01/19/22 02/22/25 Lorri Ariza PA [address] [place] [address] [address] PCP - General Physician Biomedical Engineering Technician 02/23/25 Marcio Gomez MBBS [address] [place] [address] [email or web address] Internal Medicine 02/14/25 documented as of this encounter Additional Source Comments The information contained in this document represents components of the legal health record. It is not the complete legal health record.[facility]
--- OUTSIDE RECORDS SUMMARY | 2025-05-16 10:29 | XMS_ITS | Patient Health Record ---
Author Organization [facility] [place] Address [address] [place] [address] Care Team Providers Care Plasma Center Nurse Name Role Phone WillamLorri kothari Primary Care Provider Unavailab Diane Gabriel Unavailable [phone] Allergies Allergen (clinical drug ingredient) Drug/Non Drug Allergy documented on EMR Reaction Allergy Type Onset Date Status Iodine swollen eyes/hives Drug Allergy Active Reason For Referral No Information Medications Medication SIG (Take, Route, Frequency, Duration) Notes Start Date End Date Status Ciprofloxacin Active Vitamin D3 Active LORazepam Active Vitamin D Active Ciclopirox Olamine 0.77% external Apply to effected areas twice a day; Duration: 30 days 03/12/2016 Not-Takin g Multi Vitamin Daily Active Calcium + D Not-Taki ng Work Note . . Pt to be out of wo rk for min 2 weeks to rest painful foot condition 04/30/2016 Not-Taking Vitamin C Not-Taking Walking Boot/Pneumatic As directed Wear Daily; Duration: Until further notice 04/14/2016 Not-Taking Baby Aspirin Active Allergy Active Metoprolol & Diet Manage Prod 50 MG as directed Orally Active Omeprazole Active Piroxicam 20 MG TAKE 1 CAPSULE BY MOUTH EVERY DAY WITH FOOD; Duration: 30 Not-Taking LamISIL 250 MG 1 tablet Orally Once a day; Duration: 30 days Not-Takin g aspirin baby Not-Shekhar ing Fish Oil Not-Taking LFT . . . Dx: Mycosis (B35.1), Oral antifungal; Duration: 1 days Not-Taking Physical Therapy . . . 2-3x/week; Duration: 3-4 weeks 05/26/2016 Not-Taking Vitamin A Not-Taking Work Note . . . Pt can return to work in walking boot starting 05/19/16 05/18/2016 Not-Taking Ciclopirox Olamine 0.77 % APPLY TO AFFEC BRYAN AREAS ON FEET TWICE A DAY; Duration: 30 Not-Taking LamISIL 250 MG 1 tablet Orally Once a day; Duration: 30 days Not-Takin g Social History Tobacco Use: Social History Observation [...] point) Points 1 Interpretation Negative Vital Signs Blood pressure diastolic 75 mm Hg 05/11/2025 Height 5ft 4in in 05/11/2025 Blood pressure systolic 123 mm Hg 05/11/2025 Weight 199 lbs 05/11/2025 BMI 34.15 kg/m2 05/11/2025 Encounters Encounter Location Date Provider Diagnosis [facility] [address] [place] [address] 05/11/2025 Diane Nichols Onychomycosis B35.1 and Pain in left toe(s) [facility] [address] 05/11/2025 Diane Nichols Assessments Encounter Date Diagnosis (ICD Code) Assessment Notes Treatment Notes Treatment Clinical Notes Section Notes 05/11/2025 Pain in left toe(s) (ICD-10 - M79.675) 05/11/2025 Onychomycosis (ICD-10 - B35.1) Plan Of Treatment Pending Test Test Name Order Date MRI : Foot, left 05/18/2016 X ray : Foot, left 2V 04/03/2013 Tc99 3 phase Bone Scan 04/14/2016 *Liver Function Test (LFT) 10/22/2020 *Liver Function Test (LFT) 12/11/2013 *Liver Function Test (LFT) 12/09/2021 X ray : Foot, right 3V 12/09/2021 X ray : Foot, right 3V 10/22/2020 [id number] NAIL, 6 OR MORE 12/11/2013 [id number] NAIL, 1-5 04/03/2013 [id number] NAIL, 1-5 06/12/2013 [id number] Plate 12/11/2013 Next Appt Details Provider Name:Diane hodges, 11/06/2025 09:00:00 AM, [address] [place], [address], Insurance Providers Payer Name Payer Address Payer Phone Subscriber Number Group Number Insured Name Patient Relationship to Insured Coverage Start Date Coverage End Date [facility] [address] [place] [address] [id number] Lilliana Louise Self - patient is the insured Medical (General) History Medical History History ICD Code gallstones chicken pox Arthritis asthma Back,Hip,and Knee pain Broken bones High blood pressure Osteoporosis Poor circulation Vericose Veins Joint implants/screws Anemia Anxiety Heart disease Bone implants/screws Surgical History Surgery Date(Month/Year) tonsillectomy 1994 ankle surgery right 2000 SCOLYOSIS gastric surgery 11/2019 Hospitalization History Reason Date(Month/Year) [place] [facility], broken rib 11/2013
--- OUTSIDE RECORDS SUMMARY | 2025-05-16 10:29 | XMS_ITS | Clinical Summary ---
Author Organization [facility] Address Formerly [facility] [address] [place] [address] Phone Care Team Providers Care System Trainer Name Role Phone Marcio Gomez MBBS Unavailable Lorri Ariza Primary Care Provide r Allergies Active Allergy Reactions Criticality Noted Date Comments Iodinated Contrast Media 02/24/2023 Medications metoprolol tartrate (LOPRESSOR) 25 MG tablet Take 25 mg by mouth 2 (two) times a day. 12/08/2006 Active ascorbic acid, vitamin C, (VITAMIN C) 250 MG tablet Take 250 mg by mouth daily. Active cholecalciferol (VITAMIN D3) 4,000 unit tablet Take 1,000 Units by mouth daily. Active multivitamin-mi nerals-lutein (CENTRUM SILVER) Tab Take 1 tablet by mouth daily. Active aspirin 81 mg Cap Take 81 mg by mouth daily. 06/05/2022 Active omeprazole (PRILOSEC) 20 MG capsule Take 20 mg by mouth 2 (two) times a day. 07/08/2022 Active albuterol 2.5 mg /3 mL (0.083 %) nebulizer solution 12/01/2022 Active ciclopirox (CICLODAN) 0.77 % cream APPLY TO AFFECTED AREAS ON FEET TWICE A DAY for 30 Active budesonide-form oterol 160-4.5 mcg/actuation inhaler 12/01/2023 Active budesonide (PULMICORT) 0.5 mg/2 mL nebulizer solution 11/27/2023 Active LORazepam (ATIVAN) 1 MG tablet Take 1 mg by mouth 3 (three) times a day as needed for anxiety. 03/07/2024 Active cetirizine (ZYRTEC) 10 MG tablet Take 10 mg by mouth daily. 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 Multiple myeloma screen showed a small M spike, IgG kappa type. DISCUSSION: I discussed overall impression, differential diagnosis and further evaluation in this regard. Patient has a small M spike. It is very unusual to have any endorgan damage with this small M-spike. It is possible that patient has MGUS, with an incidental benign skeletal abnormality. On the other hand, it is important to rule out multiple myeloma and I recommended to do a PET scan and a bone marrow aspiration and biopsy. I discussed the procedure with her at length. RECOMMENDATIONS: Schedule bone marrow aspiration and biopsy by IR Schedule PET scan Return for follow-up in 2 to 3 weeks Thank you very much for allowing me to participate in this patient's care Lytic bone lesions on xray 04/04/2025 Assessment & Plan (04/04/2025 8:42 AM EDT): IMPRESSION: This is a 59-year-old woman with incidental finding of lucencies on the x-ray done for right wrist pain. Possible differential is plasma cell neoplasm. X-rays also showed osteopenia. DISCUSSION: I discussed all impression, differential diagnosis and further evaluation in this regard. The changes are likely benign although it is important to rule out plasma cell neoplasm and patient will undergo appropriate laboratory evaluation and depending upon that I will further decide about the need for additional diagnostic interventions like skeletal survey and bone marrow aspiration and biopsy. RECOMMENDATIONS: Patient was advised to go to the lab for the blood work CBCD with differential, CMP, serum protein electrophoresis and immunofixation, serum free light chains kappa and lambda, serum quantitative immunoglobulins Follow-up in 2 weeks Thank you very much for allowing me to participate in this patient's care PAC (premature atrial contraction) 02/01/2024 Pap smear abnormality of cer vix/human papillomavirus (HPV) positive 07/23/2022 Overview (07/23/2022): Remote hx of LEEP 2019: NIL/HPV neg 01/2022: NIL/HPV pos (16/18/45 neg) Plan: repeat pap in 1 year Other chest pain 06/09/2022 Assessment & Plan (06/09/2022 5:39 PM EDT): Complain of chest pain and went to the emergency room on June 06 pain does not look like anginal pain. States for many hours. It is mild. Not get worse with activity. Does not radiate to her arm not radiate to her jaw. Present we will proceed to a stress test. For abnormal EKG showing old anteroseptal NE we will do a myocardial perfusion imaging with technetium 99 M. Do an echocardiogram for LV wall motion. In the meantime patient will continue her baby aspirin and beta-ayush. Benign essential hypertension 06/09/2022 Assessment & Plan (06/09/2022 5:42 PM EDT): She has history of hypertension and she has been treated with beta-ayush. Blood pressure is 116 x 86. She will continue her beta-ayush and continue to monitor her blood pressure. Echocardiogram to see if there is endorgan damage in form for LVH. Gastric hyperacidity 06/09/2022 Assessment & Plan (06/09/2022 5:41 PM EDT): Patient told me that she has been taking omeprazole for last few days and it has given her relief. Her chest pain could be secondary to acid peptic disease and I have asked her to continue the omeprazole as she is doing. Talk to her PCP about hyperacidity. Obesity (BMI 30.0-34.9) 06/09/2022 Leg pain, posterior, right 06/09/2022 Assessment & Plan (06/09/2022 5:41 PM EDT): She complained of leg pain back of her leg but on examination there was no tenderness and no venous cords on flexion of her foot there is no tenderness in the calf. We will do an ultrasound of the leg to rule out DVT. Abnormal electrocardiogram 06/09/2022 Assessment & Plan (06/09/2022 5:40 PM EDT): The EKG shows sinus rhythm old anteroseptal NE nonspecific ST-T wave changes left atrial abnormality. Proceeding to a nuclear stress test and echocardiogram. Encounters Date Type Department Care Team Description 05/14/2025 9:33 AM EDT - 05/14/2025 11:59 PM EDT Hospital Encounter [facility] Cytogenetics [address] [place] [address] Discharge Disposition: Home or Self Care 05/14/2025 9:32 AM EDT Hospital Encounter [facility] Molecular DX Lab [address] [address] Discharge Disposition: Home or Self Care 05/14/2025 9:00 AM EDT - 05/14/2025 9:55 AM EDT Surgery [facility] Cardiovascular And Interventional Radiology [address] [place] [address] Jorge Youngblood MD Bone Biopsy with Fluoroscopy Guidance 05/14/2025 8:12 AM EDT - 05/14/2025 9:31 AM EDT Hospital Encounter [facility] Molecular DX Lab LM [address] [place] [address] Discharge Disposition: Home or Self Care 05/14/2025 7:49 AM EDT - 05/14/2025 9:36 AM EDT Hospital Encounter [facility] Cardiovascular And Interventional Radiology [address] [place] [address] Jorge Youngblood MD Discharge Disposition: Home or Self Care 05/14/2025 Procedure Pass [facility] Cardiovascular And Interventional Radiology [address] [place] [address] 05/02/2025 10:30 AM EDT Telemedicine - audio only [facility] at [address] [address] Marcio Gomez MBBS Lytic bone lesions on xray (Primary Dx); Plasma cell disorder; Multiple myeloma not having achieved remission 05/02/2025 Telephone [facility] at [address] [address] Marcio Gomez MBBS 04/09/2025 7:35 AM EDT - 04/09/2025 11:59 PM EDT Hospital Encounter [facility] Laboratory [address] [place] [address] Marcio Gomez MBBS Discharge Disposition: Home or Self Care 04/04/2025 8:40 AM EDT Telemedicine [facility] at [address] [address] Marcio Gomez MBBS Lytic bone lesions on xray (Primary Dx) 03/16/2025 9:40 AM EDT Office Visit [facility] [address] [place] [address] [address] Floor, [address] [place] [address] Lul Naranjo MD Benign essential hypertension (Primary Dx); PAC (premature atrial contraction) 02/23/2025 Transcribe Orders Virtual Department [address] [place] [address] Lorri Ariza PA Breast screening (Primary Dx) 02/16/2025 1:17 PM EDT - 02/16/2025 11:59 PM EDT Hospital Encounter [facility] Laboratory [address] [place] [address] Lorri Ariza PA Discharge Disposition: Home or Self Care 02/16/2025 Orders Only [facility] At [facility] Rad Onc [address] [place] [address] ProviderRadha MD 02/14/2025 Telephone [facility] at [address] [address] Marcio Gomez MBBS HEMATOLOGY REFERRAL from Last 3 Months Immunizations Immunization Administration Dates Next Due COVID-19 (Pre-06/28) Pfizer Vaccine, mRNA, damaso-sucrose, PF 07/01/2022,12/05/2021,06/06/2021,09/13,08/23/2020 INFLUENZA, SPLIT VIRUS, TRIVALENT PF 06/20/2024 INFLUENZA, SPLIT VIRUS, TRIV ALENT W/ PRESERVATIVE IM 06/29/2016 Influenza Quadrivalent MDCK Preservative Free IM 06/05/2023,06/22/2022 Influenza Quadrivalent Prese rvative Free IM 06/23/2021,06/19/2020,06/21/2019,06/17 Influenza Quadrivalent w/ Pr eservative IM 07/25/2018,07/02/2017 Influenza Recombinant Shea valent Preservative Free IM 07/12/2019 Pneumococcal conjugate PCV20 09/11/2024 Pneumococcal polysaccharide PPSV23 08/07/2020 RSV Vaccine (bivalent) 07/19/2024 Tdap 11/10/2024 Family History Medical History Relation Comments Colon cancer Paternal Grandfather Relation Status Comments Paternal Grandfather Social History Tobacco Use Types Packs/Day Years Used Date Smoking Tobacco: Never Smokeless Tobacco: Never Tobacco Cessation:Counseling Given: Not Answered Alcohol Use Standard Drinks/Week Comments Yes 0 [...] ecorded Are you denied basic needs [facility] as food, clothing, or medical care? No 05/14/2025 In the past 12 months have y ou been in a relationship with a person who hurts, threatens, or tries to control you? No 05/14/2025 Are you denied basic needs [facility] as food, clothing, or medical care? No [...] Orientation Straight 12/21/2023 11 :10 AM EDT Last Filed Vital Signs Vital Sign Reading Time Taken Comments Blood Pressure 134/85 05/14/2025 9:24 AM EDT Pulse 65 03/16/2025 9:39 AM EDT Temperature 36 C (96.8 F) 05/02/2024 11:45 AM EDT Respiratory Rate 17 05/14/2025 8:49 AM EDT Oxygen Saturation 95% 05/14/2025 9:29 AM EDT Inhaled Oxygen Concentration - - Weight 91.6 kg (202 lb) 03/16/2025 9:39 AM EDT Height 162.6 cm (5' 4.02 ) 03/16/2025 9:39 AM ED T Body Mass Index 34.66 03/16/2025 9:39 AM EDT Plan of Treatment Upcoming Encounters Date Type Department Care Team (Late st Contact Info) Description 02/23/2025 Procedure Pass [address] [address] 07/30/2025 4:10 PM EST Office Visit [facility] [address] [place] [address] [place] [address] Noemi Chopra MD [address] [facility], [address] [place] [address] [email or web address] 09/28/2025 9:45 AM EST Appointment [address] [address] System, Provider Not In, PhD [address] [address] 03/26/2026 8:00 AM EDT Office Visit [facility] [address] [place] [address] [address] Floor, [address] [place] [address] Lul Naranjo MD [address] [place] [address] Health Maintenance Due Date Last Done Comments DEPRESSION SCREENING 1975 HEPATITIS C SCREENING 1981 HIV ONE-TIME SCREENING (18-65 YEARS) 1981 ZOSTER VACCINES (1 of 2) 1982 MAMMOGRAM 2003 COLOGUARD 2008 FIT TEST 2008 FOBT 2008 SIGMOIDOSCOPY 2008 VIRTUAL COLONOSCOPY 2008 INFLUENZA VACCINE (#1) 2025 , 06/05/2023, 06/22/2022, Additional history exists BLOOD PRESSURE 09/16/2025 03/16/2025 PAP SMEAR 01/25/2026 01/25/2023 SCREENING FOR DIABETES 04/09/2028 04/09/2025 LIPID PANEL 04/07/2029 04/07/2024, 08/0 10/2022, 01/19/2022 COLONOSCOPY 05/02/2034 05/02/2024 COLORECTAL CANCER SCREENING 05/02/2034 Adult Td,Tdap Booster 11/10/2034 11/10/2024 COVID-19 VACCINE Completed 06/20/2024, , 06/05/2023, Additional history exists RSV VACCINE Completed 07/19/2024 PNEUMOCOCCAL VACCINES (50+ years) Completed 09/11/2024, 08/07/2020 SMOKING STATUS SCREENING (Once After 26 Yrs) Completed 03/16/2025 HEPATITIS A VACCINES Aged Out No long er eligible based on patient's age to complete this topic HIB VACCINES Aged Out No longer eligi ble based on patient's age to complete this topic MENINGOCOCCAL VACCINES (ACWY) Aged Out No longer eligible based on patient's age to complete this topic MENINGOCOCCAL VACCINES (B) Aged Out N o longer eligible based on patient's age to complete this topic Medical Devices Not on file Procedures Procedure Name Priority Date/Time Associated Diagnosis Comments HELTON STAIN, MARROW Routine 05/14/2025 9:00 AM EDT [facility] CYTOGENETICS TRACKING, MARROW Routine 05/14/2025 9:00 AM EDT FLOW CYTOMETRY CELL SURF MARKER TECHL ONLY 1ST Routine 05/14/2025 9:00 AM EDT INTERVENTIONAL RADIOLOGY Routine 05/14/2025 8:53 AM EDT Plasma cell disorder CBC AND DIFFERENTIAL STAT 05/14/2025 8:07 AM EDT CBC AND DIFFERENTIAL Routine 04/09/2025 8:24 AM EDT Lytic bone lesions on xray COMPREHENSIVE METABOLIC PANEL Routine 04/09/2025 8:24 AM EDT Lytic bone lesions on xray FREE LIGHT CHAINS, SERUM Routine 04/09/2025 8:24 AM EDT Lytic bone lesions on xray MONOCLONAL PROTEIN STUDY, SERUM Routine 04/09/2025 8:24 AM EDT Lytic bone lesions on xray OUTSIDE IMAGING Routine 02/16/2025 2:14 PM EDT HEMOGLOBIN ELECTROPHORESIS Routine 02/16/2025 1:35 PM EDT Multiple myeloma, remission status unspecified CBC AND DIFFERENTIAL Routine 02/16/2025 1:35 PM EDT Multiple myeloma, remission status unspecified ENDOSCOPY, COLON 05/02/2024 11:1 9 AM EDT LIPID PANEL Routine 04/07/2024 7:07 AM EDT Screening for unspecified condition Encounter for screening for diseases of the blood and blood-forming organs and certain disorders involving the immune mechanism Encounter for screening for lipoid disorders Encounter for screening for other suspected endocrine disorder PAP TEST Routine 01/25/2023 12:00 AM EDT from Last 3 Months or Most Recently Relevant to Health Maintenance Results * [facility] cytogenetics tracking, marrow (05/14/2025 9:00 AM EDT) [facility] cytogenetics tracking Sample forwarded to [facility]. See Pathology section for results. [facility] 05/14/2025 9:00 AM EDT 05/14/2025 9:15 PM EDT Marcio Gomez [facility] [place] BLOOD ORDERABLES Final Result [facility] [address] [place] [address] * Leukemia/Lymphoma Phenotype (05/14/2025 9:00 AM EDT) LEUKEM/LYMPH PHENO SEE NOTE 05:05 PM [facility] DPT OF LAB MED AND PAT+ Comment: [...] validated guidelines. Microscopic Description SEE NOTE A [id number] slide prepared from the flow cytometry specimen is examined. The specimen contains maturing hematopoietic precursors. No morphologic features of acute leukemia, lymphoma or a plasma cell proliferative disorder are identified. ADDITIONAL INFORMATION This test was developed using an analyte specific reagent. Its performance characteristics were determined by [facility] in a manner consistent with CLIA requirements. This test has not been cleared or approved by the U.S. Food and Drug Administration. Reason for Referral PLASMA CELL DISORDER Specimen Source Bone Marrow 05/14/2025 9:00 AM EDT 05/14/2025 10:36 AM EDT Jorge Youngblood MD LAB BLOOD ORDERABLES Final Result [facility] DPT OF LAB MED AND PAT+ [address] [place] [address] * Helton stain, marrow (05/14/2025 9:00 AM EDT) HELTON STAIN MARROW DONE [facility] 05/14/2025 9:00 AM EDT 05/14/2025 9:15 PM EDT Marcio SOTO LAB BLOOD ORDERABLES Final Result Performing Organization Address [facility] Co de Phone Number [facility] [address] [place] [address] * BONE BIOPSY WITH FLUOROSCOPY GUIDANCE (IR) [...] moderate sedation, maintained 11 minutes. us Marcio DSOUZABS IMG IR Final Resu lt * (ABNORMAL) CBC and differential (05/14/2025 8:07 AM EDT) Only the most recent of3 resultswithin the time period is included. WBC 10.35 4.00 - 11.00 K/uL [facility] RBC 4.65 4.00 - 5.20 M/uL [facility] HGB 13.3 12.0 - 16.0 g/dL [facility] HCT 42.0 36.0 - 46.0 % [facility] PLT 147(L) 150 - 450 K/uL [facility] MCV 90.3 80.0 - 100.0 fL [facility] MCH 28.6 27.0 - 31.0 pg [facility] MCHC 31.7(L) 32.0 - 36.0 g/dL [facility] RDW 13.5 11.5 - 14.5 % [facility] MPV 12.0 8.4 - 12.0 fL [facility] NRBC 0.00 0.00 /100 WBCs [facility] ABSOLUTE NRBC 0.00 0.00 K/uL [facility] DIFF METHOD Auto [facility] NEUTS 66.0 48.0 - 76.0 % [facility] LYMPHS 24.6 18.0 - 41.0 % [facility] MONOS 5.5 4.0 - 11.0 % [facility] EOS 3.1 0.0 - 5.0 % [facility] BASOS 0.5 0.0 - 1.5 % [facility] Granulocytes, immature (%) 0.3 0.0 - 0.9 % [facility] ABSOLUTE NEUTS 6.83 1.92 - 7.60 K/uL [facility] ABSOLUTE LYMPHS 2.55 0.72 - 4.10 K/uL [facility] ABSOLUTE MONOS 0.57 0.16 - 1.10 K/uL [facility] ABSOLUTE EOS 0.32 0.00 - 0.50 K/uL [facility] ABSOLUTE BASOS 0.05 0.00 - 0.15 K/uL [facility] Granulocytes, immature 0.03 0.00 - 0.09 K/uL [facility] Blood 05/14/2025 8:07 AM EDT 05/14/2025 8:10 AM EDT Annemarie Mcpherson PA-C LAB BLOOD ORDERABLES Yolanda edmonds Result [address] [address] * (ABNORMAL) Monoclonal protein study, serum (04/09/2025 8:24 AM EDT) M-protein GK 0.104(H) g/dL [facility] PT LAB MED/PATH [address] M-protein GL Test component not applicable or not reported. g/dL [facility] MED/PATH [address] M-protein AK Test component not applicable or not reported. g/dL [facility] MED/PATH [address] M-protein AL Test component not applicable or not reported. g/dL [facility] MED/PATH [address] M-protein MK Test component not applicable or not reported. g/dL [facility] MED/[address] M-protein ML Test component not applicable or not reported. g/dL [facility] MED/[address] Glycosylation Test component not applicable or not reported. [facility] MED[facility] [address] Flag, M-protein Isotype Positive(A) Negative [facility]/PATH [facility] QMPTS Interpretation IgG kappa 0.104 g/dL [facility] [address] [facility] Comment: (NOTE) ADDITIONAL INFORMATION The submitted sample was assayed by five separate immunopurifications for IgG, IgA, IgM, kappa and lambda. The result reflects the findings of either no monoclonal protein detected or those monoclonal immunoglobulins that were detected. This test was developed and its performance characteristics determined by [facility] in a manner consistent with CLIA requirements. This test has not been cleared or approved by the U.S. Food and Drug Administration. IgA 198 61 - 356 mg/dL [facility] [address] [place] IgM 84 37 - 286 mg/dL [facility] IgG 924 767 - 1,590 mg/dL [facility] Therapeutic Antibody Administered? No [facility] Comment:Corrected on 04/11 A T 1637: previously reported as NO Blood 04/09/2025 8:24 AM EDT 04/09/2025 8:28 AM EDT Marcio Gomez [facility] [place] BLOOD ORDERABLES Edite d Result - Final [facility] [address] [address] [place] [address] * Comprehensive metabolic panel (04/09/2025 8:24 AM EDT) SODIUM 143 133 - 146 mmol/L [facility] POTASSIUM 3.9 3.3 - 5.1 mmol/L [facility] CHLORIDE 107 96 - 108 mmol/L [facility] CO2 26 21 - 35 mmol/L [facility] BUN 19 6 - 19 mg/dL [facility] CREATININE 0.60 0.5 - 1.5 mg/dL [facility] GLUCOSE 86 70 - 99 mg/dL [facility] ALBUMIN 3.9 3.9 - 4.8 g/dL [facility] TOTAL PROTEIN 6.6 6.5 - 8.0 g/dL [facility] CALCIUM 9.1 8.4 - 10.3 mg/dL [facility] ALKALINE PHOSPHATASE 107 39 - 117 U/L [facility] TOTAL BILIRUBIN 0.4 0.0 - 1.2 mg/dL [facility] AST 29 0 - 37 U/L [facility] ALT 37 0 - 40 U/L [facility] GLOBULIN 2.7 1 - 4.8 g/dL [facility] EGFR 102 >59 mL/min/1.7 3m2 [facility] Comment:Estimated glomerular filtration rate calculated using the CKD-EPI refit equation. ANION GAP 14 10 - 20 mmol/L [facility] Blood 04/09/2025 8:24 AM EDT 04/09/2025 8:28 AM EDT Marcio DSOUZA LAB BLOOD ORDERABLES Final Result Performing Organization Address [facility]/ZIP Co de Phone Number [address] [address] * Free light chains, serum (04/09/2025 8:24 AM EDT) [place] Free Light Chain 1.61 0.3300 - 1.94 mg/dL [facility] MED[facility] Lambda Free Light Chain 1.12 0.5700 - 2.63 mg/dL [facility] MED/[facility] [address] [place]/Lambda FLC Ratio 1.44 0.2600 - 1.65 [facility] MED[facility] [address] Blood 04/09/2025 8:24 AM EDT 04/09/2025 8:28 AM EDT Marcio SOTO LAB BLOOD ORDERABLES Final Result Performing Organization Address City/[facility]/ZIP Co de Phone Number [facility] MED/[facility] [address] [place] [address] * Outside Imaging Report Only (02/16/2025 2:14 PM EDT) us Historical Provider MD STARR XR CHEST Final Res ult * Hemoglobin Evaluation (02/16/2025 1:35 PM EDT) HGB Interpretation SEE NOTE [facility] DPT OF LAB MED AND PAT+ Comment: (NOTE) No electrophoretic evidence of abnormal hemoglobin or beta thalassemia. See comment. Comment: These results do not exclude alpha thalassemia. The vast majority of hemoglobin variants and beta complex thalassemias are excluded, including the common variants Hbs S, C, D, and E, although some rare clinically significant hemoglobin disorders are electrophoretically silent. In particular, some variants such as Hb Constant Spring, or other variants, may not be detected. If otherwise unexplained lifelong/familial symptoms such as hemolysis (i.e. Solomon body hemolytic anemia), microcytosis, erythrocytosis, cyanosis, or hypoxia are present and additional testing is desired, please call the Metabolic Hematology Laboratory ( ). If alpha thalassemia is a consideration, alpha globin gene deletion/duplication analysis is available (AGDD/Alpha Globin Cluster Locus Del/Dup). If genotyping to assess for Hb Constant Spring is desired, please order WASEQ/Alpha Globin Gene Sequencing, B. Additional sample required. Methodologies utilized in this interpretation include: capillary electrophoresis, HPLC. HGB Interp Cancel Test component not applicable or not reported. [facility] DPT OF LAB MED AND PAT+ Hb A 97.5 95.8 - 98.0 % [facility] DPT OF LAB MED AND PAT+ Hb F 0.0 0.0 - 0.9 % [facility] DPT OF LAB MED AND PAT+ Hb A2 2.5 2.0 - 3.3 % [facility] DPT OF LAB MED AND PAT+ Comment: (NOTE) ADDITIONAL INFORMATION This test has been modified from the streetcar starter's instructions. Its performance characteristics were determined by [facility] in a manner consistent with CLIA requirements. This test has not been cleared or approved by the U.S. Food and Drug Administration. Variant 1 Test component not applicable or not reported. % [facility] DPT OF LAB MED AND PAT+ Variant 2 Test component not applicable or not reported. % [facility] DPT OF LAB MED AND PAT+ Variant 3 Test component not applicable or not reported. % [facility] DPT OF LAB [facility] AND PAT+ HGBCE Interpretation Test component not applicable or not reported. [facility] DPT OF LAB MED AND PAT+ HPLC Hemoglobin Variant See Interpretation [facility] DPT OF LAB MED AND PAT+ Comment: (NOTE) ADDITIONAL INFORMATION This test has been modified from the streetcar starter's instructions. Its performance characteristics were determined by [facility] in a manner consistent with CLIA requirements. This test has not been cleared or approved by the U.S. Food and Drug Administration. Blood 02/16/2025 1:35 PM EDT 02/16/2025 1:41 PM EDT Lorri KELLY LAB BLOOD ORDERABLES Final Result [facility] DPT OF LAB MED AND PAT+ [address] [place] [address] * ENDOSCOPY, COLON (05/02/2024 11:19 AM EDT) Narrative Transcriptions Avinash Stewart MD - 05/02/2024 11:19 AM EDT [facility] Patient Name: Lilliana Tang Neumann Attending MD:: AVINASH STEWART MD, , Procedure Date: 05/02/2024 11:19 AM Date of : 1965 Age: 58 Admit Type: Outpatient Gender: Female Room: [place] [address] Referring MD: MESERET GALLEGOS Exam Type: Colonoscopy Indications: High risk colon cancer surveillance: Personalhistory of colonic polyps Medications: Monitored Anesthesia Care Procedure: Informed consent was obtained from the patientafter discussion of the indications, limitations, alternatives, benefits, and risks of the procedure. Risks specifically discussed include but are not limited to medication reactions, missed lesions, bleeding, perforation, or the need for emergent surgery. Throughout the procedure, the patient's blood pressure, pulse, end-tidal CO2, and oxygensaturations were monitored continuously. The Olympus adult variable colonoscope [id number] #4 was introduced through the anus and advanced to the cecum, identified by appendiceal orifice andileocecal valve. The colonoscopy was performed without difficulty. The patient tolerated the procedurewell. The quality of the bowel preparation was excellent. The quality of the bowel preparation was evaluated using the BBPS ([place] Bowel Preparation Scale)with scores of: Right Colon = 3, Transverse Colon = 3and Left Colon = 3 (entire mucosa seen well with no residual staining, small fragments of stool oropaque liquid). The total BBPS score equals 9. Anatomical landmarks were photographed. Complications: No immediate complications. Estimated blood loss: Minimal. Findings: The perianal and digital rectal examinations were normal. A 4 mm polyp was found in the sigmoid colon. Thepolyp was sessile. The polyp was removed with a coldsnare. Resection and retrieval were complete. Internal hemorrhoids were found duringretroflexion. The hemorrhoids were mild. The exam was otherwise normal throughout theexamined colon. Impression: - One 4 mm polyp in the sigmoid colon, removed witha cold snare. Resected and retrieved. - Internal hemorrhoids. Recommendation: - Discharge patient to home. - Await pathology results. - Repeat colonoscopy in 5 years for surveillance. AVINASH STEWART MD, 05/02/2024 11:41:12 AM This report has been signed electronically. Number of Addenda: 0 Note Initiated On: 05/02/2024 11:19 AM Procedure Code(s): --- Professional --- 55201, Colonoscopy, flexible; with removal of tumor(s), polyp(s), or other lesion(s) by snare technique --- Technical --- 33569, Colonoscopy, flexible; with removal of tumor(s), polyp(s), or other lesion(s) by snare technique Diagnosis Code(s): --- Professional --- Z86.010, Personal history of colonic polyps D12.5, Benign neoplasm of sigmoid colon K64.8, Other hemorrhoids --- Technical --- Z86.010, Personal history of colonic polyps D12.5, Benign neoplasm of sigmoid colon K64.8, Other hemorrhoids CPT copyright 2021 [employer]. All rights reserved. The codes documented in this report are preliminary and upon sugar cane planter machine operator reviewmay be revised to meet current compliance requirements. Procedure Date: 05/02/2024 11:19:[address] [place] [address] Meseret Gallegos MD GI PROCEDURE ORDERABLES Final Result * Lipid panel (04/07/2024 7:07 AM EDT) HDL 43 mg/dL [facility] Comment: Interpretation <40 mg/dL: Low HDL cholesterol (major risk factor for CHD) Greater than or equal to 60 mg/dL: High HDL cholesterol ( negative risk factor for CHD) HDL - cholesterol is affected by a number of factors, e.g. smoking, excerise, hormones, sex and age. CHOLESTEROL 149 0 - 240 mg/dL [facility] TRIGLYCERIDES 140 30 - 160 mg/dL [facility] LDL 78 50 - 129 mg/dL [facility] Comment: LDL levels in terms of risk for coronary heart disease: <100 mg/dL: Optimal 100-129 mg/dL: Near or above optimal 130-159 mg/dL: Borderline high 160-189 mg/dL: High >190 mg/dL: Very High CARDIAC RISK RATIO 3.5 3.3 - 4.4 [facility] Blood 04/07/2024 7:07 AM EDT 04/07/2024 7:11 AM EDT us Meseret Gallegos MD LAB BLOOD ORDERABLES Final Re sult [address] [address] * Pap Test (01/25/2023 12:00 AM EDT) 01/25/2023 01/26/2023 8:2 2 AM EDT Narrative SEE NARRATIVE - 01/28/2023 4:51 PM EDT [address] [address] Colorist Dyer: Lilliana Adams MD FLORAL ARTIST Cytology Report FINAL DIAGNOSIS A. PAP SMEAR (SUREPATH) CE: SPECIMEN ADEQUACY: Satisfactory for evaluation; transformation zone present. INTERPRETATION: NEGATIVE FOR INTRAEPITHELIAL LESION OR MALIGNANCY. Other: rare groups of endometrial cells Electronically Signed Out By: MD Flavia Delcid CT(ASCP) CARLITA Morales(ASCP) By his/her signature above, the pathologist listed as making the Final Diagnosis certifies that he/she has personally reviewed this case and confirmed or corrected the diagnosis. The Pap test is a screening test primarily for squamous cancers and precursors and has associated false-negative and false-positive results. New technologies such as liquid-based preparations may decrease but will not eliminate all false-negative results. Regular sampling and follow-up of unexplained clinical signs and symptoms are recommended to minimize false negative results. PROCEDURES/ADDENDA HPV Testing (Requested) Ordered Date: 01/26/2023 A. PAP SMEAR (SUREPATH) CE: Human Papilloma Virus Test NEGATIVE for high-risk Human Papilloma Virus types 16, 18, 45 and the Other high risk probe set (Includes 31, 33, 35, 39, 51, 52, 56, 58, 59, 66, 68) Note: Testing performed by [employer] Onclarity HR-HPV analysis. Clinical correlation is advised. This HPV test was performed at [facility], [address] [place] [address]. This test has been FDA approved for SurePath cervical cytology specimens. The accuracy and precision of this test for all other specimen sources has been verified in the Cytopathology Laboratory of the [facility] and has not been cleared or approved by the U.S. Food and Drug Administration. Clinical correlation is advised. CLINICAL HISTORY Date of Last Menstrual Period: Not Provided Menstrual History: Post Menopausal Infection History: HPV: 2021 Other Clinical Conditions: Screening Pap SPECIMEN SOURCE A: PAP SMEAR (SUREPATH) CE Patient Name: LILLIANA AYON : 1965 (Age: 57) Sex: F Institution: [facility] Location: [facility] Date of Collection: 01/25/2023 Date of Reported: 01/28/2023 16:51 Results to: Noemi Chopra MD Noemi Chopra MD CYTOLOGY ORDERABLES Final Res ult SEE NARRATIVE from Last 3 Months or Most Recently Relevant to Health Maintenance Insurance [employer] [facility] [employer] [facility] [place] [address] [place] [address] [place] [address] [facility] FEDERAL Care Teams System Trainer Relationship Specialty Start Date End Date Lorri Ariza PA [address] [place] [address] [place] [address] PCP - General Physician Pattern Cutter 02/23/25 Marcio Gomez MBBS [address] [place] [phone] [email or web address] Internal Medicine 02/14/25 Additional Source Comments The information contained in this document represents components of the legal health record. It is not the complete legal health record.[facility]
--- OUTSIDE RECORDS SUMMARY | 2025-05-16 10:29 | XMS_ITS | Encounter Summary ---
Author Organization [facility] Address [facility] [address] [place] [phone] Phone Care Team Providers Care Flaker Tender Name Role Phone Marcio Gomez MBBS Unavailable [phone] Lorri Ariza Primary Care Provide r Encounter Details Date Type Department Care Team (Late st Contact Info) Description 05/14/2025 Procedure Pass [facility] [address] [place] [address] Social History Tobacco Use Types Packs/Day Years [...] st Contact Info) Description 02/23/2025 Procedure Pass [address] [address] 07/30/2025 4:10 PM EST Office Visit [facility] [address] [place] [address] [place] [address] Noemi Chopra MD [address], [address] [place] [address] 09/28/2025 9:45 AM EST Appointment [address] [address] System, Provider Not In, [place] [address] 03/26/2026 8:00 AM EDT Office Visit [facility] [address] [place] [address] [address] Floor, [address] [place] [address] Lul Naranjo MD [address] [place] [phone] documented as of this encounter Visit Diagnoses Not on filedocumented in this encounter Care Teams Flaker Tender Relationship Specialty Start Date End Date Lorri Ariza PA [address] [place] [address] [address] PCP - General Physician Internal Medicine Physician Assistant 6/20/25 Marcio Gomez MBBS [address] [place] [phone] [email or web address] Internal Medicine 02/14/25 documented as of this encounter Additional Source Comments The information contained in this document represents components of the legal health record. It is not the complete legal health record.[facility]
== END 2025-05-16 09:45 | disposition home or self-care (01) ==
LOC: HO.HMCH 08:55
DX: I10 Essential (primary) hypertension (principal); D47.2 Monoclonal gammopathy; E66.9 Obesity, unspecified; Z68.34 Body mass index [BMI] 34.0-34.9, adult; F41.9 Anxiety disorder, unspecified; K21.9 Gastro-esophageal reflux disease without esophagitis; R94.5 Abnormal results of liver function studies; D12.6 Benign neoplasm of colon, unspecified; J45.40 Moderate persistent asthma, uncomplicated; M85.80 Other specified disorders of bone density and structure, unspecified site; K64.9 Unspecified hemorrhoids; B35.1 Tinea unguium

== ENCOUNTER → 2025-05-16 08:54 | Outpatient (BNVA) | payer BC, SELFPAY | DX: D47.2 Monoclonal gammopathy (principal); F41.9 Anxiety disorder, unspecified; I10 Essential (primary) hypertension; E66.9 Obesity, unspecified; Z68.35 Body mass index [BMI] 35.0-35.9, adult; K21.9 Gastro-esophageal reflux disease without esophagitis; R94.5 Abnormal results of liver function studies; J45.40 Moderate persistent asthma, uncomplicated; M85.80 Other specified disorders of bone density and structure, unspecified site; K64.9 Unspecified hemorrhoids; B35.1 Tinea unguium; Z86.0101 Personal history of adenomatous and serrated colon polyps; Z79.899 Other long term (current) drug therapy; Z13.31 Encounter for screening for depression; Z13.39 Encounter for screening examination for other mental health and behavioral disorders | CPT/HCPCS: 96127 ==